=== PATIENT | male | born 1940 | race Caucasian/White ===

== ENCOUNTER 2023-03-15 05:32 | Inpatient (IN) | payer MEDICARE ==
[2023-03-15 06:11] LABS: Basophils % (A) 0 %; Eosinophils % (A) 0 %; HCT 45.4 % (39.0-53.0); HGB 14.6 gm/dL (13.0-17.5); Hypochromasia Slight; Lymphocytes # (A) 0.2 k/uL (1.0-4.8); Lymphocytes % (A) 2 %; MCH 31.4 pg (25.0-35.0); MCHC 32.2 g/dL (31.0-37.0); MCV 97.6 fL (80.0-100.0); Mean Platelet Volume 8.6; Monocytes # (A) 0.2 k/uL (0-1.0); Monocytes % (A) 2 %; Neutrophils # (A) 10.6 k/uL (1.3-7.7); Neutrophils % (A) 96 %; Platelet Count 153 k/uL (150-450); RBC 4.65 m/uL (4.30-5.90); RDW 13.8 % (11.5-15.5); WBC 11.1 k/uL (3.8-10.6)
--- NOTE | 2023-03-15 06:17 | ED ---
Pediatric SOB HPI - General Chief Complaint: Shortness of Breath Stated Complaint: SOB Time Seen by Provider: 03/15/23 05:45 Source: patient, EMS Mode of arrival: EMS Limitations: no limitations - History of Present Illness Initial Comments: This patient is an 82-year-old man transferred here from [facility] for suspected pneumonia and COPD exacerbation. Patient reportedly has history of COPD and uses home oxygen. He states that his typical setting is 8 L and he has been turning up over the past few days to 11 L. Patient states that he's had progressive shortness of breath going back to November. The patient sees outsole paraffiner, Dr. Phani gomez, but has not seen him in over 3 months now. He has had some yellow to green sputum associated with cough. He has not noted fever or chills. Patient has had some intermittent chest pain over the past few weeks associated with shortness of breath. He is not having chest pain now. He has not noted change in bowel movements. Currently denies leg swelling. He again was diagnosed with pneumonia and COPD exacerbation. The patient was given Solu- Medrol and Xopenex 1 hour treatment. The patient received cefepime 1 g and Levaquin 750 mg, as well as saline 500 mL bolus. The patient was then transferred here. Patient states that since receiving the medications his cough has become productive of more whitish sputum. Labs from the other facility include CBC with white blood cell count 10.16, hemoglobin 15, platelets 194. The chemistries remarkable for BUN 24, creatinine 1.83, glucose 271. Lactic acid 8.6, d-dimer 1.6, BNP 15,146. MD Complaint: cough, difficulty breathing Onset/Timin -: days(s) Fever: No Consistency: intermittent Provoking Factors: none known Associated Symptoms: cough - Related Data Home Medications Medication Instructions Recorded Confirmed Clobetasol Propionate/Emoll 1 applic TOPICAL 03/15/23 [Clobetasol Emulsion 0.05% Foam] FLUoxetine HCL [PROzac] 20 mg PO DAILY 03/15/23 03/15/23 Famotidine [Pepcid] 20 mg PO DAILY 03/15/23 03/15/23 Ipratropium-Albuterol Nebulize 3 ml INHALATION RT-TID 03/15/23 03/15/23 [Duoneb 0.5 mg-3 mg/3 ml Soln] Montelukast [Singulair] 10 mg PO HS 03/15/23 03/15/23 Omeprazole [PriLOSEC] 20 mg PO DAILY 03/15/23 03/15/23 diphenhydrAMINE [Benadryl] 25 mg PO BID PRN 03/15/23 03/15/23 guaiFENesin-Coden 100-10MG/5ML 10 ml PO Q6H PRN 03/15/23 03/15/23 [Robitussin AC] Previous Rx's Medication Instructions Recorded Apixaban [Eliquis] 5 mg PO BID 30 Days #60 tab 03/18/23 Diltiazem Oral [Cardizem*] 30 mg PO QID 30 Days #120 tab 03/18/23 Furosemide [Lasix] 40 mg PO BID@0900,1600 30 Days #60 03/18/23 tab predniSONE [Deltasone] 40 mg PO DAILY 5 Days #5 tab 03/18/23 Allergies Allergy/AdvReac Type Severity Reaction Status Date / Time No Known Allergies Allergy Verified 03/15/23 07:15 Review of Systems ROS Statement: Those systems with pertinent positive or pertinent negative responses have been documented in the HPI. ROS Other: All systems not noted in ROS Statement are negative. Constitutional: Denies: fever, chills, weakness Respiratory: Reports: cough, dyspnea. Denies: hemoptysis Cardiovascular: Reports: chest pain, orthopnea. Denies: palpitations, edema, syncope Gastrointestinal: Denies: abdominal pain, vomiting, diarrhea, constipation Genitourinary: Denies: dysuria, frequency Musculoskeletal: Denies: back pain Skin: Denies: rash Neurological: Denies: headache, weakness Past Medical History Past Medical History: COPD, Hyperlipidemia Additional Past Medical History / Comment(s): Pulmonary fibrosis, hiatal hernia, chewing tobacco use History of Any Multi-Drug Resistant Organisms: None Reported Additional Past Surgical History / Comment(s): Amputation R hand, hernia repair, TURP, retinal detachment Past Psychological History: Anxiety, Depression Smoking Status: Former smoker Past Alcohol Use History: None Reported Past Drug Use History: None Reported General Exam Limitations: no limitations General appearance: alert, anxious, in distress Head exam: Present: atraumatic, normocephalic Eye exam: Present: normal appearance. Absent: scleral icterus, conjunctival injection Respiratory exam: Present: respiratory distress, rales, accessory muscle use. Absent: wheezes, rhonchi, stridor Cardiovascular Exam: Present: regular rate, normal rhythm, gallop GI/Abdominal exam: Present: soft. Absent: distended, tenderness, guarding, rebound, rigid, mass Extremities exam: Present: normal inspection, normal capillary refill. Absent: pedal edema, calf tenderness Back exam: Present: normal inspection. Absent: CVA tenderness (R), CVA tenderness (L) Neurological exam: Present: alert Skin exam: Present: warm, dry, intact, normal color. Absent: rash Course Vital Signs 03/15/23 03/15/23 03/15/23 05:35 05:50 06:05 Temperature 97.8 F Pulse Rate 80 99 Respiratory 27 H 26 H Rate Blood Pressure 142/85 142/85 O2 Sat by Pulse 98 96 Oximetry Fraction of 50 Inspired Oxygen (FIO2) 03/15/23 03/15/23 03/15/23 06:06 06:10 06:30 Temperature Pulse Rate 104 H 85 Respiratory 30 H 42 H Rate Blood Pressure 118/74 118/74 O2 Sat by Pulse 93 L 93 L Oximetry Fraction of 50 Inspired Oxygen (FIO2) 03/15/23 03/15/23 03/15/23 06:42 07:00 07:20 Temperature Pulse Rate 96 88 Respiratory 30 H 35 H Rate Blood Pressure 118/74 120/74 O2 Sat by Pulse 95 96 Oximetry Fraction of Inspired Oxygen (FIO2) 03/15/23 03/15/23 03/15/23 07:30 08:00 08:29 Temperature Pulse Rate 79 79 Respiratory 13 42 H Rate Blood Pressure 120/74 120/74 O2 Sat by Pulse 94 L 95 Oximetry Fraction of 50 Inspired Oxygen (FIO2) 03/15/23 03/15/23 08:37 11:49 Temperature Pulse Rate 98 Respiratory 34 H Rate Blood Pressure 134/82 O2 Sat by Pulse 96 96 Oximetry Fraction of Inspired Oxygen (FIO2) Medical Decision Making - Medical Decision Making The patient had chest x-ray which I interpret to show evidence of congestive heart failure and underlying interstitial lung disease versus patchy infiltrates. Patient is an 82-year-old man transferred here from outside hospital to have further evaluation and treatment for severe dyspnea. The patient there was suspected of pneumonia, however arrival here patient appears more likely to have multifactorial dyspnea due to underlying lung disease and some associated congestive heart failure. The patient will be admitted with consultations to pulmonology, cardiology. Clinically patient has improved somewhat with BiPAP and nitroglycerin IV drip. Was pt. sent in by a medical professional or institution ([facility] Harris, KENNEL WORKER, urgent care, hospital, or residential...) When possible be specific @ -[The patient is transferred here from outside hospital Did you speak to anyone other than the patient for history (EMS, parent, family, police, friend...)? What history was obtained from this source @ -[Patient's family does give some history Did you review nursing and triage notes (agree or disagree)? Why? @ -[I reviewed and agree with nursing and triage notes] Were old charts reviewed (outside hosp., previous admission, EMS record, old EKG, old radiological studies, urgent care reports/EKG's, residential records)? Report findings @ -[Transfer records were reviewed] Differential Diagnosis (chest pain, altered mental status, abdominal pain women, abdominal pain men, vaginal bleeding, weakness, fever, dyspnea, syncope, hea dache, dizziness, GI bleed, back pain, seizure, CVA, palpatations, mental health, musculoskeletal)? @ -[Differential Dyspnea: Coronary syndrome, arrhythmia, tamponade, asthma, COPD, pulmonary embolism, pneumonia, pneumothorax, pulmonary effusion, anaphylaxis, diabetic ketoacidosis, flailed chest, pulmonary contusion, diaphragmatic rupture, anemia, neuromuscular, this is not meant to be an all-inclusive list. EKG interpreted by me (3pts min.). @ -[I interpreted As above] X-rays interpreted by me (1pt min.). @ -[I interpreted as above CT interpreted by me (1pt min.). @ -[None done] U/S interpreted by me (1pt. min.). @ -[None done] What testing was considered but not performed or refused? (CT, X-rays, U/S, labs)? Why? @ -[None] What meds were considered but not given or refused? Why? @ -[None] Did you discuss the management of the patient with other professionals (professionals i.e. ALEJANDRINA Harris, KENNEL WORKER, lab, RT, psych nurse, social work faculty member, doughnut machine operator, teacher, safety security officer, caser up)? Give summary @ -[Case is discussed with admitting physician and with data storage specialist and treatment recommendations incorporated Was smoking cessation discussed for >3mins.? @ -[No] Was critical care preformed (if so, how long)? @ -[Yes, 45 minutes Were there social determinants of health that impacted care today? How? (Homelessness, low income, unemployed, alcoholism, drug addiction, transportation, low edu. Level, literacy, decrease access to med. care, senior care, rehab)? @ -[No] Was there de-escalation of care discussed even if they declined (Discuss DNR or withdrawal of care, Hospice)? DNR status @ -[I did discuss CODE STATUS and treatment options as part of the admission process What co-morbidities impacted this encounter? (DM, HTN, Smoking, COPD, CAD, Cancer, CVA, ARF, Chemo, Hep., AIDS, mental health diagnosis, sleep apnea, morbid obesity)? @ -[Chronic lung disease, hypertension Was patient admitted / discharged? Hospital course, mention meds given and route, prescriptions, significant lab abnormalities, going to OR and other pertinent info. @ -[Admitted, as above Undiagnosed new problem with uncertain prognosis? @ -[No] Drug Therapy requiring intensive monitoring for toxicity (Heparin, Nitro, Insulin, Cardizem)? @ -[No] Were any procedures done? @ -[No] Diagnosis/symptom? @ -[Dyspnea, multifactorial Chronic lung disease Impending respiratory failure Exacerbation of congestive heart failure Possible pneumonia Lactic acidosis Acute, or Chronic, or Acute on Chronic? @ -[Acute on chronic Uncomplicated (without systemic symptoms) or Complicated (systemic symptoms)? @ -[Complicated Side effects of treatment? @ -[No] Exacerbation, Progression, or Severe Exacerbation? @ -[No] Poses a threat to life or bodily function? How? (Chest pain, [place], [place], pneumonia, PE, COPD, DKA, ARF, appy, cholecystitis, CVA, Diverticulitis, Homicidal, Suicidal, threat to staff... and all critical care pts) @ -[Yes there is high risk of respiratory failure and - Lab Data Result diagrams: 03/18/23 04:13 03/18/23 04:13 Lab Results 03/15/23 03/15/23 03/15/23 Range/Units 05:47 05:57 05:57 WBC 11.1 H (3.8-10.6) k/uL RBC 4.65 (4.30-5.90) m/uL Hgb 14.6 (13.0-17.5) gm/dL Hct 45.4 (39.0-53.0) % MCV 97.6 (80.0-100.0) fL MCH 31.4 (25.0-35.0) pg MCHC 32.2 (31.0-37.0) g/dL RDW 13.8 (11.5-15.5) % Plt Count 153 (150-450) k/uL MPV 8.6 Neutrophils % 96 % Lymphocytes % 2 % Monocytes % 2 % Eosinophils % 0 % Basophils % 0 % Neutrophils # 10.6 H (1.3-7.7) k/uL Lymphocytes # 0.2 L (1.0-4.8) k/uL Monocytes # 0.2 (0-1.0) k/uL Eosinophils # 0.0 (0-0.7) k/uL Basophils # 0.0 (0-0.2) k/uL Hypochromasia Slight PT 11.5 (10.0-12.5) sec INR 1.1 (<1.2) APTT 23.8 (22.0-30.0) sec Sodium (137-145) mmol/L Potassium (3.5-5.1) mmol/L Chloride (98-107) mmol/L Carbon Dioxide (22-30) mmol/L Anion Gap mmol/L BUN (9-20) mg/dL Creatinine (0.66-1.25) mg/dL Est GFR (CKD-EPI)AfAm (>60 ml/min/1.73 sqM) Est GFR (CKD-EPI)NonAf (>60 ml/min/1.73 sqM) Glucose (74-99) mg/dL Lactic Ac Sepsis Rflx Plasma Lactic Acid Jaydon (0.7-2.0) mmol/L Calcium (8.4-10.2) mg/dL Total Bilirubin (0.2-1.3) mg/dL AST (17-59) U/L ALT (4-49) U/L Alkaline Phosphatase (38-126) U/L Troponin I 0.213 H* (0.000-0.034) ng/mL NT-Pro-B Natriuret Pep pg/mL Total Protein (6.3-8.2) g/dL Albumin (3.5-5.0) g/dL 03/15/23 03/15/23 03/15/23 Range/Units 05:57 05:57 06:49 WBC (3.8-10.6) k/uL RBC (4.30-5.90) m/uL Hgb (13.0-17.5) gm/dL Hct (39.0-53.0) % MCV (80.0-100.0) fL MCH (25.0-35.0) pg MCHC (31.0-37.0) g/dL RDW (11.5-15.5) % Plt Count (150-450) k/uL MPV Neutrophils % % Lymphocytes % % Monocytes % % Eosinophils % % Basophils % % Neutrophils # (1.3-7.7) k/uL Lymphocytes # (1.0-4.8) k/uL Monocytes # (0-1.0) k/uL Eosinophils # (0-0.7) k/uL Basophils # (0-0.2) k/uL Hypochromasia PT (10.0-12.5) sec INR (<1.2) APTT (22.0-30.0) sec Sodium 140 (137-145) mmol/L Potassium 4.4 (3.5-5.1) mmol/L Chloride 111 H (98-107) mmol/L Carbon Dioxide 18 L (22-30) mmol/L Anion Gap 11 mmol/L BUN 23 H (9-20) mg/dL Creatinine 1.13 (0.66-1.25) mg/dL Est GFR (CKD-EPI)AfAm 70 (>60 ml/min/1.73 sqM) Est GFR (CKD-EPI)NonAf 61 (>60 ml/min/1.73 sqM) Glucose 149 H (74-99) mg/dL Lactic Ac Sepsis Rflx Y Plasma Lactic Acid Jaydon 4.3 H* (0.7-2.0) mmol/L Calcium 8.3 L (8.4-10.2) mg/dL Total Bilirubin 0.6 (0.2-1.3) mg/dL AST 39 (17-59) U/L ALT 26 (4-49) U/L Alkaline Phosphatase 90 (38-126) U/L Troponin I (0.000-0.034) ng/mL NT-Pro-B Natriuret Pep 95783 pg/mL Total Protein 6.4 (6.3-8.2) g/dL Albumin 3.4 L (3.5-5.0) g/dL - EKG Data -: EKG Interpreted by Il EKG shows normal: sinus rhythm, axis (Normal), intervals (CA interval 2:30 milliseconds, prolonged consistent with first-degree AV block. QRS duration 123 ms, prolonged consistent with right bundle branch block. QTC 416 ms, normal.), QRS complexes (There is probable old inferior infarct, based on Q waves.), ST-T waves (Lateral ischemia.) Rate: normal (Rate 97 bpm) Interpretation: LV[facility] Disposition Clinical Impression: CHF (congestive heart failure), Lactic acidosis, Chronic interstitial lung di sease Disposition: ADMITTED IP TO THIS HOSP Condition: Serious Is patient prescribed a controlled substance at d/c from ED?: No
[2023-03-15 06:19] LABS: INR 1.1 (<1.2); Partial Thromboplastin Time 23.8 sec (22.0-30.0); Prothrombin Time 11.5 sec (10.0-12.5)
[2023-03-15 06:30] LABS: ALT 26 U/L (4-49); AST 39 U/L (17-59); African American GFR (CKD) 70 (>60 ml/min/1.73 sqM); Albumin 3.4 g/dL (3.5-5.0); Alkaline Phosphatase 90 U/L (38-126); Anion Gap 11 mmol/L; Blood Urea Nitrogen 23 mg/dL (9-20); Calcium 8.3 mg/dL (8.4-10.2); Carbon Dioxide 18 mmol/L (22-30); Chloride 111 mmol/L (98-107); Glucose 149 mg/dL (74-99); Non-African American GFR(CKD) 61 (>60 ml/min/1.73 sqM); Potassium 4.4 mmol/L (3.5-5.1); Sodium 140 mmol/L (137-145); Total Bilirubin 0.6 mg/dL (0.2-1.3); Total Protein 6.4 g/dL (6.3-8.2)
[2023-03-15 06:39] LABS: NT-Pro-B-Type Natriuretic Pept 14300 pg/mL
[2023-03-15] MEDS ORDERED: FUROSEMIDE 10 MG/ML 4 ML VIAL IV SCH (07:45)
--- NOTE | 2023-03-15 07:47 | XR ---
EXAMINATION TYPE: XR chest 1V portable DATE OF EXAM: 03/15/2023 6:11 AM CLINICAL INDICATION:Male, 82 years old with history of dyspnea; [facility] COMPARISON: None TECHNIQUE: XR chest 1V portable Frontal view of the chest. FINDINGS: Lungs/Pleura: There is no evidence of pleural effusion, focal consolidation, or pneumothorax. Pulmonary vascularity: Pulmonary vascular congestion. Heart/mediastinum: Cardiomediastinal silhouette is enlarged and stable. Musculoskeletal: No acute osseous pathology. Other findings: None Lines/Tubes: IMPRESSION: 1. Cardiomegaly and with multifocal airspace opacities. Correlate with BNP for congestive heart fail ure. 2. Multifocal pneumonia or excluded.
[2023-03-15] MEDS: SODIUM CHLORIDE 0.9% 1,000 ML IV SCH (08:00)
[2023-03-15] MEDS ORDERED: ENOXAPARIN 40 MG/0.4 ML SYRINGE SQ SCH (09:00)
[2023-03-15] MEDS ORDERED: ONDANSETRON 4 MG/2 ML VIAL IVP PRN (09:21)
[2023-03-15] MEDS ORDERED: NALOXONE 0.4 MG/ML 1 ML VIAL IV PRN (09:21)
[2023-03-15] MEDS ORDERED: MORPHINE SULFATE 2 MG/ML SYRINGE IV PRN (09:21)
[2023-03-15] MEDS ORDERED: HEPARIN SODIUM 1,000 UN/ML (10ML VL) IV ONE (09:23)
[2023-03-15] MEDS ORDERED: AZITHROMYCIN 500 MG in SODIUM CHLORIDE 0.9% 250 ML IVPB STA (09:27)
[2023-03-15] MEDS ORDERED: PNEUMONIA PROTOCOL UTILIZED 1 EACH MISC PO PRN (09:27)
[2023-03-15] MEDS ORDERED: ACETAMINOPHEN IV (For NPO) 1,000 MG in EMPTY BAG 1 BAG IVPB PRN (09:31)
[2023-03-15] MEDS ORDERED: guaiFENesin-Coden 100-10MG/5ML 10 ML CUP PO PRN (09:31)
[2023-03-15] MEDS ORDERED: methylPREDNISolone SOD SUCCI 40 MG/ML 1 ML VIAL IV SCH (09:45)
--- NOTE | 2023-03-15 10:09 | P.CNPUL ---
History of Present Illness Consult date: 03/15/23 Reason for consult: dyspnea History of present illness: 82-year-old male patient presenting with shortness of breath. I'm seeing the patient in the emergency department and the patient is currently on a BiPAP at a pressure of 10 over 5 cm of water with FiO2 of 50%. The patient was transferred to us from [facility]. He is known to have obstructive sleep apnea, pulmonary fibrosis, hyperlipidemia, hiatal hernia, history of depression, colonic diverticulosis. The patient was seen by Dr. Tracy regarding his pulmonary fibrosis. He is also in the process of switching from Dr. Tracy to Dr. Pacheco. He was getting progressively more hypoxic. He was asked to increase oxygen flow up to 8 L/m nasal cannula which uses on outpatient basis. He has a concentrator at home. He lives in [facility]. He [facility]. Subsequently, he got transferred to us with worsening shortness of breath and currently is on a BiPAP with extreme labored breathing to the point where the patient using accessory muscles of breathing and he is unable to complete full sentences. His generating tidal volumes above 1000. His current respiratory rate is around 38 with a minute ventilation of 46 L/m. Based on the history, he has no chest pain. A productive cough and he was also having some chills on outpatient basis. Chest x-ray was cardiomegaly and multifocal infiltrates and the chronicity of the pulmonary infiltrates are noted known. The echoes 11, he was 14.6 and a platelet count is at 153. Normal coagulation profile. ProBNP level is 14,300, sodium is at 140, BUN is at 23 with a creatinine of 1.1 and a potassium level is at 4.4. Serum bicarb is at 18. The viral profile was negative. His is the power of corporate attorney. The patient states that he is a DNR/DNI CODE STATUS. Review of Systems Constitutional: Reports daytime sleepiness, Reports fatigue, Reports poor appetite, Reports weight gain Eyes: denies as per HPI, denies blurred vision, denies bulging eye, denies decreased vision, denies diplopia, denies discharge, denies dry eye, denies irritation, denies itching, denies pain, denies photophobia, denies loss of peripheral vision, denies loss of vision, denies tunnel vision/blind spots Ears, nose, mouth and throat: Reports as per HPI Breasts: absent: as per HPI, gynecomastia Cardiovascular: Reports decreased exercise tolerance, Reports dyspnea on exertion, Reports rapid heart beat, Reports shortness of breath Respiratory: Reports dyspnea, Reports home oxygen Gastrointestinal: Reports as per HPI Genitourinary: Reports as per HPI Musculoskeletal: Reports as per HPI Musculoskeletal: absent: ankle pain, ankle stiffness, ankle swelling, as per HPI, elbow pain, elbow stiffness, elbow swelling, foot pain, foot stiffness, foot swelling, hand pain, hand stiffness, hand swelling, hip pain, hip stiffness, hip swelling, knee pain, knee stiffness, knee swelling, shoulder pain, shoulder stiffness, shoulder swelling, wrist pain, wrist stiffness, wrist swelling Integumentary: Reports as per HPI Neurological: Reports as per HPI Psychiatric: Reports as per HPI Endocrine: Reports as per HPI, Reports fatigue Hematologic/Lymphatic: Reports as per HPI Allergic/Immunologic: Reports as per HPI Past Medical History Past Medical History: COPD, Hyperlipidemia Additional Past Medical History / Comment(s): Pulmonary fibrosis, hiatal hernia, chewing tobacco use, hyperlipidemia, obesity, depression, hiatal hernia, umbilical hernia, previous history of diverticulosis and rectal bleeding, chronic hypoxic respiratory failure History of Any Multi-Drug Resistant Organisms: None Reported Additional Past Surgical History / Comment(s): Amputation R hand, hernia repair, TURP, retinal detachment Past Psychological History: Anxiety, Depression Smoking Status: Former smoker Past Alcohol Use History: None Reported Past Drug Use History: None Reported Medications and Allergies Home Medications Medication Instructions Recorded Confirmed Type FLUoxetine HCL [PROzac] 20 mg PO DAILY 03/15/23 03/15/23 History Famotidine [Pepcid] 20 mg PO DAILY 03/15/23 03/15/23 History Ipratropium-Albuterol Nebulize 3 ml INHALATION RT-TID 03/15/23 03/15/23 History [Duoneb 0.5 mg-3 mg/3 ml Soln] Irbesartan [Avapro] 150 mg PO DAILY 03/15/23 03/15/23 History Montelukast [Singulair] 10 mg PO HS 03/15/23 03/15/23 History Omeprazole [PriLOSEC] 20 mg PO DAILY 03/15/23 03/15/23 History Simvastatin [Zocor] 40 mg PO HS 03/15/23 03/15/23 History Allergies Allergy/AdvReac Type Severity Reaction Status Date / Time No Known Allergies Allergy Verified 03/15/23 07:15 Physical Exam Vitals: Vital Signs Temp Pulse Resp BP Pulse Ox FiO2 03/15/23 08:37 96 03/15/23 08:29 50 03/15/23 07:20 88 35 H 120/74 96 03/15/23 06:42 30 H 03/15/23 06:10 104 H 30 H 118/74 93 L 03/15/23 06:06 50 03/15/23 06:05 50 03/15/23 05:50 99 26 H 142/85 96 03/15/23 05:35 97.8 F 80 27 H 142/85 98 Intake and Output 03/14/23 03/15/23 03/15/23 22:59 06:59 14:59 Other: Weight 92.85 kg Extremely labored breathing and the patient is using the muscles of breathing and the patient is currently on a BiPAP at a pressure of 10/5 were notified to 50%. Unable to complete full sentences. Looks apprehensive and anxious. Head exam was generally normal. There was no scleral icterus or corneal arcus. Mucous membranes were moist. Neck was supple and without jugular venous distension, thyromegaly, or carotid bruits. Carotids were easily palpable bilaterally. There was no adenopathy. Lungs sounds are diminished bilaterally and the patient has crackles in the mid and lower lung [place] Heart sounds are tachycardic, possible salicylate overall heart sounds are distant. Abdominal exam revealed normal bowel sounds. The abdomen was soft, non-tender, and without masses, organomegaly, or appreciable enlargement of the abdominal aorta. The patient is umbilical hernia which is easily reducible Examination of the extremities revealed easily palpable radial, femoral and pedal pulses. There was no cyanosis, clubbing or edema. Examination of the skin revealed no evidence of significant rashes, suspicious appearing nevi or other concerning lesions. Neurologically the patient is awake and alert and following commands and answering questions appropriately. Results - Laboratory Findings CBC and BMP: 03/15/23 05:57 03/15/23 05:57 PT/INR, D-dimer PT 11.5 sec (10.0-12.5) 03/15/23 05:57 INR 1.1 (<1.2) 03/15/23 05:57 Abnormal lab findings: Abnormal Labs 03/15/23 03/15/23 03/15/23 05:47 05:57 05:57 WBC 11.1 H Neutrophils # 10.6 H Lymphocytes # 0.2 L Chloride 111 H Carbon Dioxide 18 L BUN 23 H Glucose 149 H Plasma Lactic Acid Jaydon Calcium 8.3 L Troponin I 0.213 H* Albumin 3.4 L 03/15/23 05:57 WBC Neutrophils # Lymphocytes # Chloride Carbon Dioxide BUN Glucose Plasma Lactic Acid Jaydon 4.3 H* Calcium Troponin I Albumin - Diagnostic Findings Chest x-ray: image reviewed Assessment and Plan Plan: Acute on chronic hypoxic respiratory failure. The patient has chronic pulmonary fibrosis and has chronic oxygen dependence at 8 L/m nasal cannula. The patient presented to the hospital because of an acute on top of chronic shortness of br eath and hypoxic respiratory failure and the patient is currently on BiPAP at a pressure of 10/5 with an FiO2 of 50%. The cause for this acute decompensation is not clear. Consider underlying CHF as the patient diffuse but the pulmonary infiltrates. Multifocal pneumonia cannot be completely ruled out. Pulmonary embolism is felt to be less likely. The patient is currently in the emergency department. 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 Tracy on outpatient basis Chronic hypoxic respiratory failure maintained on oxygen at 8 L/m nasal cannula Chronic dyspnea secondary to above Elevated proBNP level, consider underlying CHF Obesity Hyperlipidemia History of depression Obstructive sleep apnea Umbilical hernia History of diverticulosis and previous history of rectal bleed Chronic anxiety Plan Condition is quite critical at this point in time. The patient is an acute on top of chronic hypoxic respiratory failure the patient is currently on a BiPAP. Breathing is still labored despite being on a BiPAP. We'll start the patient on Lasix 40 mg IV every 8 hours We'll obtain a cardiology evaluate LV function, proBNP is elevated and the patient could've underlying CHF Over the patient with broad-spectrum antibiotics and put the patient on a combination of Rocephin and Zithromax Check pro calcitonin level The viral screen is been negative IV Solu-Medrol 60 mg every 6 hours William scott 4 times a day We are going to contact the was power of corporate attorney. He states it is a DNR/DNI CODE STATUS and the studies to be further confirmed IV fluids to KVO Condition is critical, possible ICU care specially if unable to confirm the CODE STATUS. Time with Patient: Greater than 30
[2023-03-15 10:16] LABS: INR 1.1 (<1.2); Partial Thromboplastin Time 24.9 sec (22.0-30.0); Prothrombin Time 11.9 sec (10.0-12.5)
[2023-03-15] MEDS: HEPARIN SOD,PORK IN 0.45% NACL 25,000 UNIT in 0.45% NACL 1 250ML.BAG IV SCH (10:26)
[2023-03-15] MEDS: PANTOPRAZOLE 40 MG/10 ML VIAL IV SCH (10:33)
[2023-03-15 11:41] LABS: C Reactive Protein 2.6 mg/dL (<1.0)
[2023-03-15 11:45] LABS: Glucose,Whole Blood 246 mg/dL (70-110)
[2023-03-15] MEDS ORDERED: NITROGLYCERIN OINT 1 INCH/GM PACKET TOPICAL SCH (12:00)
[2023-03-15] MEDS: guaiFENesin 600 MG TABLET.ER PO SCH ×2 (12:52→20:26)
[2023-03-15] MEDS: FLUoxetine HCL 20 MG CAP PO SCH (12:52)
[2023-03-15] MEDS: IPRATROPIUM-ALBUTEROL 3 ML NEB INHALATION SCH ×2 (14:09→20:35)
--- NOTE | 2023-03-15 14:15 | P.HPIM ---
History of Present Illness H&P Date: 03/15/23 Chief Complaint: Shortness of breath * 82-year-old gentleman with past medical history significant for hypertension, dyslipidemia, pulmonary fibrosis, interstitial lung disease, chronic hypoxic respiratory failure on approximately 8 L of oxygen at baseline was sent in from another facility for respiratory failure/pneumonia/COPD exacerbation. Patient has been having productive cough with green-yellow sputum, intermittent chest pain, shortness of breath ongoing for the last few weeks. Prior to transfer to [facility] by mouth: Patient was treated with IV antibiotics including cefepime, Levaquin, IV Solu-Medrol and given Xopenex breathing treatment. At the time of presentation in ED patient was noted to be severely hypoxic and was placed on BiPAP for acute respiratory distress * At the time of presentation in ED patient was noted to be severely hypoxic and was placed on BiPAP for respiratory distress * Workup initiated in ER included a chest x-ray which showed multifocal opacities as well as pulmonary vascular congestion * Serum chemistry obtained in ER included CBC which were WBC of 11.1 hemoglobin 14.6 platelet count of 153 * Sodium of 140 potassium 4.4 chloride 111 carbon dioxide 18 BUNs 20 creatinine 1.13 lactate of 4.3 troponin of 0.213 * N-terminal BNP [id number] * EKG obtained in ER showed sinus tachycardia with nonspecific ST segment changes patient was noted to have elevated troponin and was started on IV heparin drip with consultation from cardiology * Secondary to acute respiratory distress probably medicine was consulted as well * Patient to be admitted to progressive care unit for treatment of ACS, respiratory failure multifocal pneumonia and COPD exacerbation REVIEW OF SYSTEMS: Cough, sputum production, shortness of breath, chest pain CONSTITUTIONAL: No fever, no malaise, no fatigue. HEENT: No recent visual problems or hearing problems. Denied any sore throat. CARDIOVASCULAR: Cough, sputum production, shortness of breath, chest pain PULMONARY: Cough, sputum production, shortness of breath, chest pain GASTROINTESTINAL: No diarrhea, no nausea, no vomiting, no abdominal pain. NEUROLOGICAL: No headaches, no weakness, no numbness. HEMATOLOGICAL: Denies any bleeding or petechiae. GENITOURINARY: Denies any burning micturition, frequency, or urgency. MUSCULOSKELETAL/RHEUMATOLOGICAL: Denies any joint pain, swelling, or any muscle pain. ENDOCRINE: Denies any polyuria or polydipsia. PHYSICAL EXAMINATION: GENERAL: The patient is alert and oriented x3, acute distress, ill appearance, facemask in place HEENT: Pupils are round and equally reacting to light. EOMI Normocephalic, atraumatic. No pharyngeal erythema. No thyromegaly. CARDIOVASCULAR: S1 and S2 present. Tachycardia noted PULMONARY: Decreased breath sounds bilaterally, bilateral crackles ordered, facemask in place ABDOMEN: Soft, nontender, nondistended, normoactive bowel sounds. No palpable organomegaly. MUSCULOSKELETAL: No joint swelling or deformity. EXTREMITIES: No cyanosis, clubbing, or pedal edema. NEUROLOGICAL: Exam limited secondary to acute distress Past Medical History Past Medical History: COPD, Hyperlipidemia Additional Past Medical History / Comment(s): Pulmonary fibrosis, hiatal hernia, chewing tobacco use History of Any Multi-Drug Resistant Organisms: None Reported Additional Past Surgical History / Comment(s): Amputation R hand, hernia repair, TURP, retinal detachment Past Psychological History: Anxiety, Depression Smoking Status: Former smoker Past Alcohol Use History: None Reported Past Drug Use History: None Reported Medications and Allergies Home Medications Medication Instructions Recorded Confirmed Type Aspirin 81 mg PO DAILY 03/15/23 03/15/23 History Clobetasol Propionate/Emoll 1 applic TOPICAL 03/15/23 History [Clobetasol Emulsion 0.05% Foam] FLUoxetine HCL [PROzac] 20 mg PO DAILY 03/15/23 03/15/23 History Famotidine [Pepcid] 20 mg PO DAILY 03/15/23 03/15/23 History Ipratropium-Albuterol Nebulize 3 ml INHALATION RT-TID 03/15/23 03/15/23 History [Duoneb 0.5 mg-3 mg/3 ml Soln] Irbesartan [Avapro] 150 mg PO DAILY 03/15/23 03/15/23 History Montelukast [Singulair] 10 mg PO HS 03/15/23 03/15/23 History Omeprazole [PriLOSEC] 20 mg PO DAILY 03/15/23 03/15/23 History Simvastatin [Zocor] 40 mg PO HS 03/15/23 03/15/23 History diphenhydrAMINE [Benadryl] 25 mg PO BID PRN 03/15/23 03/15/23 History guaiFENesin-Coden 100-10MG/5ML 10 ml PO Q6H PRN 03/15/23 03/15/23 History [Robitussin AC] Allergies Allergy/AdvReac Type Severity Reaction Status Date / Time No Known Allergies Allergy Verified 03/15/23 07:15 Physical Exam Vitals: Vital Signs Temp Pulse Resp BP Pulse Ox FiO2 03/15/23 08:37 96 03/15/23 08:29 50 03/15/23 07:20 88 35 H 120/74 96 03/15/23 06:42 30 H 03/15/23 06:10 104 H 30 H 118/74 93 L 03/15/23 06:06 50 03/15/23 06:05 50 03/15/23 05:50 99 26 H 142/85 96 03/15/23 05:35 97.8 F 80 27 H 142/85 98 Intake and Output 03/14/23 03/15/23 03/15/23 22:59 06:59 14:59 Other: Weight 92.85 kg Results CBC & Chem 7: 03/15/23 05:57 03/15/23 05:57 Labs: Abnormal Lab Results - Last 24 Hours (Table) 03/15/23 03/15/23 03/15/23 Range/Units 05:47 05:57 05:57 WBC 11.1 H (3.8-10.6) k/uL Neutrophils # 10.6 H (1.3-7.7) k/uL Lymphocytes # 0.2 L (1.0-4.8) k/uL Chloride 111 H (98-107) mmol/L Carbon Dioxide 18 L (22-30) mmol/L BUN 23 H (9-20) mg/dL Glucose 149 H (74-99) mg/dL Plasma Lactic Acid Jaydon (0.7-2.0) mmol/L Calcium 8.3 L (8.4-10.2) mg/dL Troponin I 0.213 H* (0.000-0.034) ng/mL Albumin 3.4 L (3.5-5.0) g/dL 03/15/23 Range/Units 05:57 WBC (3.8-10.6) k/uL Neutrophils # (1.3-7.7) k/uL Lymphocytes # (1.0-4.8) k/uL Chloride (98-107) mmol/L Carbon Dioxide (22-30) mmol/L BUN (9-20) mg/dL Glucose (74-99) mg/dL Plasma Lactic Acid Jaydon 4.3 H* (0.7-2.0) mmol/L Calcium (8.4-10.2) mg/dL Troponin I (0.000-0.034) ng/mL Albumin (3.5-5.0) g/dL Assessment and Plan Assessment: Assessment and plan * Acute on chronic hypoxic respiratory failure multifactorial CHF COPD exacerbation * Non-ST elevated IA * History of pulmonary fibrosis with acute exacerbation * Acute exacerbation of congestive heart failure * Multifocal pneumonia * Acute metabolic encephalopathy secondary to hypoxia * Sepsis secondary to multifocal pneumonia * In regards to hypoxic respiratory failure continue patient on noninvasive ventilation, pulmonary medicine consulted continue IV antibiotics, IV steroids, breathing treatments as needed * In regards to CHF exacerbation, echocardiogram ordered, IV Lasix started, continue to monitor intake and output cardiology consulted * In regards to multifocal pneumonia continue patient on Rocephin and azithromycin day one, urine Legionella ordered * In regards to metabolic encephalopathy secondary to hypoxia continue with oxygen supplementation continue with frequent orientation * In regards to sepsis secondary to multifocal pneumonia, blood cultures ordered follow up on CRP and pro-calcitonin levels * Patient appears critically ill cardiology, pulmonary medicine consulted * Prognosis and care plan personally discussed with in ICU * CODE STATUS is no code Time with Patient: Greater than 30
--- NOTE | 2023-03-15 14:51 | P.CRDCN ---
History of Present Illness Consult date: 03/15/23 Consult reason: congestive heart failure (poss valvular disease) History of present illness: History of present illness: This is an 82-year-old male with past medical history significant for pulmonary fibrosis, chronic hypoxic respiratory failure on home O2, hypertension, hyperlipidemia, obstructive sleep apnea. We have been asked to evaluate the patient for elevated troponins. Patient initially presented to [facility]. He was having shortness of breath that had been going on for quite some time was on antibiotics with Zithromax and a prednisone taper without improvement and actually reading was continuing to worsen. His pulse ox was 60% on 8 L nasal cannula at home. His increased his oxygen to 11 L is pulse ox went to 95%. EMS brought the patient int [facility]. Viral panel was negative with Covid 19, influenza A, influenza B and RSV. Blood culture was obtained. WBC 10, hemoglobin 15, platelet count 194. Glucose 271. Creatinine 1.83. Sodium 141, potassium 3.9, CO2 20, d-dimer was 1.6. Lactic acid 8.6. Magnesium 2.2. ProBNP 15,146. Chest x-ray revealed enlarged heart, vascular congestion with edema, hypoinflated lungs with mild elevated left hemidiaphragm. No pleural effusion or pneumothorax. Patient is seen today in the emergency center waiting for bed in the ICU. Only medicine is also following. Home cardiac medications: aspirin 81 mg daily, Lasix 20 mg daily, Lopressor 12.5 mg twice daily, Nitrostat as needed Review Of Systems: At the time of my exam: CONSTITUTIONAL: Denies fever or chills. CARDIOVASCULAR: Denies chest pain, + shortness of breath, + orthopnea, PND or palpitations. RESPIRATORY: + cough. GASTROINTESTINAL: Denies abdominal pain, diarrhea, constipation, nausea or vomiting. MUSCULOSKELETAL: Denies myalgias. NEUROLOGIC: Denies numbness, tingling or weakness. ENDOCRINE: Denies fatigue, weight change, polydipsia or polyurina. GENITOURINARY: Denies burning, hematuria or urgency with micturation. HEMATOLOGIC: Denies history of anemia or bleeding. Physical examination: Gen: This is a 82-year-old male resting and appears to be in mild to moderate di stress, currently on Bipap. VS: reviewed HEENT: Head is atraumatic, normocephalic. Pupils equal, round. Sclerae is anicteric. NECK: Supple. No JVD. LUNGS: diminished with crackles. No intercostal retractions. HEART: Regular rate and rhythm. No murmur. ABDOMEN: Soft No tenderness. EXTREMITIES: No pedal edema. No calf tenderness. NEUROLOGICAL: Patient is awake, alert and oriented x3. Assessment: Acute on chronic hypoxic respiratory failure Chronic pulmonary fibrosis Possible pneumonia Acute on chronic heart failure Plan: tinea patient on IV Lasix 40 mg every 12 hours Continue heparin drip Monitor I&O, daily weights and electrolytes and renal function Obtain 2-D echocardiogram and Doppler study to assess cardiac structure and function Further recommendations to follow based upon clinical course Thank you kindly for this consultation. Nurse practitioner note has been reviewed, I agree with documented findings and plan of care. Patient was seen and examined. Past Medical History Past Medical History: COPD, Hyperlipidemia Additional Past Medical History / Comment(s): Pulmonary fibrosis, hiatal hernia, chewing tobacco use History of Any Multi-Drug Resistant Organisms: None Reported Additional Past Surgical History / Comment(s): Amputation R hand, hernia repair, TURP, retinal detachment Past Psychological History: Anxiety, Depression Smoking Status: Former smoker Past Alcohol Use History: None Reported Past Drug Use History: None Reported Medications and Allergies Home Medications Medication Instructions Recorded Confirmed Type Aspirin 81 mg PO DAILY 03/15/23 03/15/23 History Clobetasol Propionate/Emoll 1 applic TOPICAL 03/15/23 History [Clobetasol Emulsion 0.05% Foam] FLUoxetine HCL [PROzac] 20 mg PO DAILY 03/15/23 03/15/23 History Famotidine [Pepcid] 20 mg PO DAILY 03/15/23 03/15/23 History Ipratropium-Albuterol Nebulize 3 ml INHALATION RT-TID 03/15/23 03/15/23 History [Duoneb 0.5 mg-3 mg/3 ml Soln] Irbesartan [Avapro] 150 mg PO DAILY 03/15/23 03/15/23 History Montelukast [Singulair] 10 mg PO HS 03/15/23 03/15/23 History Omeprazole [PriLOSEC] 20 mg PO DAILY 03/15/23 03/15/23 History Simvastatin [Zocor] 40 mg PO HS 03/15/23 03/15/23 History diphenhydrAMINE [Benadryl] 25 mg PO BID PRN 03/15/23 03/15/23 History guaiFENesin-Coden 100-10MG/5ML 10 ml PO Q6H PRN 03/15/23 03/15/23 History [Robitussin AC] Allergies Allergy/AdvReac Type Severity Reaction Status Date / Time No Known Allergies Allergy Verified 03/15/23 07:15 Physical Exam Vitals: Vital Signs Temp Pulse Resp BP Pulse Ox FiO2 03/15/23 08:37 96 03/15/23 08:29 50 03/15/23 07:20 88 35 H 120/74 96 03/15/23 06:42 30 H 03/15/23 06:10 104 H 30 H 118/74 93 L 03/15/23 06:06 50 03/15/23 06:05 50 03/15/23 05:50 99 26 H 142/85 96 03/15/23 05:35 97.8 F 80 27 H 142/85 98 Intake and Output 03/14/23 03/15/23 03/15/23 22:59 06:59 14:59 Other: Weight 92.85 kg Results 03/15/23 05:57 03/15/23 05:57 Cardiac Enzymes 03/15/23 03/15/23 Range/Units 05:47 05:57 AST 39 (17-59) U/L Troponin I 0.213 H* (0.000-0.034) ng/mL Coagulation 03/15/23 Range/Units 05:57 PT 11.5 (10.0-12.5) sec APTT 23.8 (22.0-30.0) sec CBC 03/15/23 Range/Units 05:57 WBC 11.1 H (3.8-10.6) k/uL RBC 4.65 (4.30-5.90) m/uL Hgb 14.6 (13.0-17.5) gm/dL Hct 45.4 (39.0-53.0) % Plt Count 153 (150-450) k/uL Comprehensive Metabolic Panel 03/15/23 Range/Units 05:57 Sodium 140 (137-145) mmol/L Potassium 4.4 (3.5-5.1) mmol/L Chloride 111 H (98-107) mmol/L Carbon Dioxide 18 L (22-30) mmol/L BUN 23 H (9-20) mg/dL Creatinine 1.13 (0.66-1.25) mg/dL Glucose 149 H (74-99) mg/dL Calcium 8.3 L (8.4-10.2) mg/dL AST 39 (17-59) U/L ALT 26 (4-49) U/L Alkaline Phosphatase 90 (38-126) U/L Total Protein 6.4 (6.3-8.2) g/dL Albumin 3.4 L (3.5-5.0) g/dL Current Medications Generic Name Dose Route Start Last Admin Trade Name Freq PRN Reason Stop Dose Admin Albuterol/Ipratropium 3 ml 03/15/23 13:00 Ipratropium-Albuterol 3 Ml Neb INHALATION RT-TID [facility] Aspirin 325 mg 03/16/23 09:00 Aspirin 325 Mg Tab PO DAILY [facility] Atorvastatin Calcium 20 mg 03/15/23 21:00 Atorvastatin 20 Mg Tab PO HS [facility] Azithromycin 500 mg 03/16/23 09:00 Azithromycin 500 Mg Tab PO 03/17/23 09:01 DAILY [facility] Protocol Fluoxetine HCl 20 mg 03/15/23 09:30 Fluoxetine Hcl 20 Mg Cap PO DAILY [facility] Furosemide 40 mg 03/15/23 07:45 03/15/23 08:41 Furosemide 10 Mg/Ml 4 Ml Vial IV 40 mg Q12H [facility] Administration Guaifenesin 600 mg 03/15/23 09:45 Guaifenesin 600 Mg Tablet.Er PO Q12HR [facility] Guaifenesin/Codeine Phosphate 10 ml 03/15/23 09:31 Guaifenesin-Coden 100-10mg/5ml 10 Ml Cup PO Q6HR PRN Cough Heparin Sodium (Porcine) 0 unit 03/15/23 09:23 Heparin Sodium 1,000 Un/Ml (10ml Vl) IV PER PROTOCOL PRN Low PTT Protocol Sodium Chloride 1,000 mls @ 20 mls/hr 03/15/23 07:45 03/15/23 08:00 Saline 0.9% IV Not Given .Q24H [facility] Heparin Sodium/Sodium Chloride 250 mls @ 10 mls/hr 03/15/23 09:30 25,000 unit/ Sodium Chloride IV .Q24H [facility] Protocol 10.77 UNITS/KG/HR Azithromycin 500 mg/ Sodium 250 mls @ 250 mls/hr 03/15/23 09:27 Chloride IVPB 03/15/23 10:26 ONCE STA Protocol Ceftriaxone Sodium 2 gm/ 50 mls @ 100 mls/hr 03/16/23 09:00 Sodium Chloride IVPB 03/19/23 09:29 Q24HR [facility] Protocol Acetaminophen 1,000 mg/ IV 100 mls @ 400 mls/hr 03/15/23 09:31 Solution IVPB 03/16/23 09:32 Q6HR PRN Fever and/ or Pain Methylprednisolone Sodium Succinate 40 mg 03/15/23 09:45 Methylprednisolone Sod Succi 40 Mg/Ml 1 Ml Vial IV Q12HR [facility] Miscellaneous Information 1 each 03/15/23 09:27 Pneumonia Protocol Utilized 1 Each Misc PO ONCE PRN Per Protocol Montelukast Sodium 10 mg 03/15/23 21:00 Montelukast 10 Mg Tab PO HS [facility] Morphine Sulfate 1 mg 03/15/23 09:21 Morphine Sulfate 2 Mg/Ml Syringe IV Q4HR PRN Severe Pain (Scale 7 to 10) Naloxone HCl 0.2 mg 03/15/23 09:21 Naloxone 0.4 Mg/Ml 1 Ml Vial IV Q2M PRN Opioid Reversal Nitroglycerin 0.5 inch 03/15/23 12:00 Nitroglycerin Oint 1 Inch/Gm Packet TOPICAL 03/16/23 12:01 Q6HR [facility] Ondansetron HCl 4 mg 03/15/23 09:21 Ondansetron 4 Mg/2 Ml Vial IVP Q8HR PRN Nausea And Vomiting Pantoprazole Sodium 40 mg 03/15/23 09:30 Pantoprazole 40 Mg/10 Ml Vial IV DAILY [facility] Intake and Output 03/14/23 03/15/23 03/15/23 22:59 06:59 14:59 Other: Weight 92.85 kg 03/15/23 05:57 03/15/23 05:57
[2023-03-15] MEDS: methylPREDNISolone SOD SUCCI 125 MG/2 ML VIAL IV SCH (17:38)
[2023-03-15] MEDS: FUROSEMIDE 10 MG/ML 4 ML VIAL IV SCH (17:39)
[2023-03-15] MEDS: ATORVASTATIN 20 MG TAB PO SCH (20:26)
[2023-03-15] MEDS: MONTELUKAST 10 MG TAB PO SCH (20:26)
[2023-03-16] MEDS: FUROSEMIDE 10 MG/ML 4 ML VIAL IV SCH ×4 (00:16→23:11)
[2023-03-16] MEDS: methylPREDNISolone SOD SUCCI 125 MG/2 ML VIAL IV SCH ×2 (00:16→06:06)
[2023-03-16 07:14] LABS: Basophils % (A) 0 %; Eosinophils % (A) 0 %; HCT 45.3 % (39.0-53.0); HGB 14.7 gm/dL (13.0-17.5); Lymphocytes # (A) 0.3 k/uL (1.0-4.8); Lymphocytes % (A) 3 %; MCH 30.9 pg (25.0-35.0); MCHC 32.3 g/dL (31.0-37.0); MCV 95.6 fL (80.0-100.0); Mean Platelet Volume 8.7; Monocytes # (A) 0.2 k/uL (0-1.0); Monocytes % (A) 3 %; Neutrophils # (A) 8.3 k/uL (1.3-7.7); Neutrophils % (A) 93 %; Platelet Count 173 k/uL (150-450); RBC 4.74 m/uL (4.30-5.90); RDW 13.9 % (11.5-15.5); WBC 8.9 k/uL (3.8-10.6)
[2023-03-16 07:20] LABS: INR 1.1 (<1.2); Partial Thromboplastin Time 34.2 sec (22.0-30.0); Prothrombin Time 11.8 sec (10.0-12.5)
[2023-03-16 07:39] LABS: African American GFR (CKD) 63 (>60 ml/min/1.73 sqM); Anion Gap 9 mmol/L; Blood Urea Nitrogen 30 mg/dL (9-20); Calcium 8.9 mg/dL (8.4-10.2); Carbon Dioxide 26 mmol/L (22-30); Chloride 107 mmol/L (98-107); Glucose 141 mg/dL (74-99); Non-African American GFR(CKD) 55 (>60 ml/min/1.73 sqM); Potassium 4.3 mmol/L (3.5-5.1); Sodium 142 mmol/L (137-145)
[2023-03-16] MEDS: HEPARIN SODIUM 1,000 UN/ML (10ML VL) IV PRN (08:00)
[2023-03-16] MEDS: PANTOPRAZOLE 40 MG/10 ML VIAL IV SCH (08:00)
[2023-03-16] MEDS: HEPARIN SOD,PORK IN 0.45% NACL 25,000 UNIT in 0.45% NACL 1 250ML.BAG IV SCH (08:01)
[2023-03-16] MEDS: AZITHROMYCIN 500 MG TAB PO SCH (08:05)
[2023-03-16] MEDS: FLUoxetine HCL 20 MG CAP PO SCH (08:05)
[2023-03-16] MEDS: guaiFENesin 600 MG TABLET.ER PO SCH ×2 (08:05→20:00)
[2023-03-16] MEDS: ASPIRIN 325 MG TAB PO SCH (08:05)
[2023-03-16] MEDS: SODIUM CHLORIDE 0.9% 1,000 ML IV SCH (08:05)
--- NOTE | 2023-03-16 08:24 | P.PN ---
Subjective Progress Note Date: 03/16/23 82-year-old male patient presenting with shortness of breath. I'm seeing the patient in the emergency department and the patient is currently on a BiPAP at a pressure of 10 over 5 cm of water with FiO2 of 50%. The patient was transferred to us from [facility]. He is known to have obstructive sleep apnea, pulmonary fibrosis, hyperlipidemia, hiatal hernia, history of depression, colonic diverticulosis. The patient was seen by Dr. Tracy regarding his pulmonary fibrosis. He is also in the process of switching from Dr. Tracy to Dr. Pacheco. He was getting progressively more hypoxic. He was asked to increase oxygen flow up to 8 L/m nasal cannula which uses on outpatient basis. He has a concentrator at home. He lives in [facility]. He arrived there to the emergency department on 11 L. Subsequently, he got transferred to us with worsening shortness of breath and currently is on a BiPAP with extreme labored breathing to the point where the patient using accessory muscles of breathing and he is unable to complete full sentences. His generating tidal volumes above 1000. His current respiratory rate is around 38 with a minute ventilation of 46 L/m. Based on the history, he has no chest pain. A productive cough and he was also having some chills on outpatient basis. Chest x-ray was cardiomegaly and multifocal infiltrates and the chronicity of the pulmonary infiltrates are noted known. The echoes 11, he was 14.6 and a platelet count is at 153. Normal coagulation profile. ProBNP level is 14,300, sodium is at 140, BUN is at 23 with a creatinine of 1.1 and a potassium level is at 4.4. Serum bicarb is at 18. The viral profile was negative. His is the power of prosecuting attorney. The patient states that he is a DNR/DNI CODE STATUS. On today's evaluation 03/16/2023, the patient is off the BiPAP. He is currently on oxygen at 10 L I flow. Doing much better, communicating, breathing is obviously less labored compared to yesterday. He was quite short of breath supported by BiPAP throughout the day and ultimately was taken off the BiPAP. He is receiving broad-spectrum antibiotics. He is on steroids and is also on diuretics. The overall fluid balance over the past 24 hours is -3.7 L. Chest x-ray was repeated today and there is obviously some improvement elevation of the lungs bilaterally. The patient does have some background interstitial fibrosis however. No consolidation. No airspace disease. Blood work shows edematous of 8.9, hemoglobin is 14.7 and a platelet count of 173. His lactic acid level dropped down to 2.0. His troponin peaked at 0.397. His pro calcitonin level is at 0.12. Urine is a 30 with a creatinine of 1.2 and a sodium level is at 142. Echocardiogram is still pending. Objective - Vital Signs Vital signs: Vital Signs Temp 97.3 F L 03/16/23 08:00 Pulse 103 H 03/16/23 08:00 Resp 21 03/16/23 08:00 BP 117/78 03/16/23 08:00 Pulse Ox 91 L 03/16/23 08:00 FiO2 50 03/16/23 04:40 Intake & Output 03/15/23 03/16/23 03/16/23 18:59 06:59 18:59 Intake Total 270 215.833 Output Total 1949 2029 40 Balance -1679 -2029 175.833 Weight 92.85 kg 92.3 kg Intake: IV 270 Azithromycin 500 mg In 250 Sodium Chloride 0.9% 250 ml @ 250 mls/hr IVPB ONCE [facility] Rx#:[id number] Sodium Chloride 0.9% 1, 20 000 ml @ 20 mls/hr IV . Q24H [facility], [facility]–1983 Rx#:[id number] Intake, IV Titration 215.833 Amount Heparin Sod,Pork in 0.45% 215.833 NaCl 25,000 unit In 0.45 % NaCl 1 250ml.bag @ 10. 77 UNITS/KG/HR 10 mls/hr IV .Q24H [facility], [facility]1983 Rx#: [id number] Output: Urine 1949 2029 40 Uretheral (Malik) 350 Other: Voiding Method Indwelling Catheter Indwelling Catheter - Exam Extremely labored breathing and the patient is comfortable and currently is on 10 L of oxygen by nasal cannula with a pulse ox of 95%. Head exam was generally normal. There was no scleral icterus or corneal arcus. Mucous membranes were moist. Neck was supple and without jugular venous distension, thyromegaly, or carotid bruits. Carotids were easily palpable bilaterally. There was no adenopathy. Lungs sounds are diminished bilaterally and the patient has crackles in the mid and lower lung villanueva Heart sounds are tachycardic, possible salicylate overall heart sounds are distant. Abdominal exam revealed normal bowel sounds. The abdomen was soft, non-tender, and without masses, organomegaly, or appreciable enlargement of the abdominal aorta. The patient is umbilical hernia which is easily reducible Examination of the extremities revealed easily palpable radial, femoral and pedal pulses. There was no cyanosis, clubbing or edema. Examination of the skin revealed no evidence of significant rashes, suspicious appearing nevi or other concerning lesions. Neurologically the patient is awake and alert and following commands and answe ring questions appropriately. - Labs CBC & Chem 7: 03/16/23 06:55 03/16/23 06:55 Labs: Abnormal Lab Results - Last 24 Hours (Table) 03/15/23 03/15/23 03/15/23 Range/Units 09:34 09:34 09:34 Neutrophils # (1.3-7.7) k/uL Lymphocytes # (1.0-4.8) k/uL APTT (22.0-30.0) sec BUN (9-20) mg/dL Glucose (74-99) mg/dL POC Glucose (mg/dL) (70-110) mg/dL Plasma Lactic Acid Jaydon 4.0 H* (0.7-2.0) mmol/L Troponin I 0.358 H* (0.000-0.034) ng/mL C-Reactive Protein 2.6 H (<1.0) mg/dL Procalcitonin (0.02-0.09) ng/mL 03/15/23 03/15/23 03/15/23 Range/Units 09:34 11:44 12:21 Neutrophils # (1.3-7.7) k/uL Lymphocytes # (1.0-4.8) k/uL APTT (22.0-30.0) sec BUN (9-20) mg/dL Glucose (74-99) mg/dL POC Glucose (mg/dL) 246 H (70-110) mg/dL Plasma Lactic Acid Jaydon (0.7-2.0) mmol/L Troponin I 0.397 H* (0.000-0.034) ng/mL C-Reactive Protein (<1.0) mg/dL Procalcitonin 0.12 H (0.02-0.09) ng/mL 03/15/23 03/15/23 03/15/23 Range/Units 12:59 15:09 16:39 Neutrophils # (1.3-7.7) k/uL Lymphocytes # (1.0-4.8) k/uL APTT 46.3 H (22.0-30.0) sec BUN (9-20) mg/dL Glucose (74-99) mg/dL POC Glucose (mg/dL) (70-110) mg/dL Plasma Lactic Acid Jaydon 5.3 H* 3.0 H* (0.7-2.0) mmol/L Troponin I (0.000-0.034) ng/mL C-Reactive Protein (<1.0) mg/dL Procalcitonin (0.02-0.09) ng/mL 03/15/23 03/16/23 03/16/23 Range/Units 20:06 06:55 06:55 Neutrophils # 8.3 H (1.3-7.7) k/uL Lymphocytes # 0.3 L (1.0-4.8) k/uL APTT (22.0-30.0) sec BUN 30 H (9-20) mg/dL Glucose 141 H (74-99) mg/dL POC Glucose (mg/dL) (70-110) mg/dL Plasma Lactic Acid Jaydon 3.2 H* (0.7-2.0) mmol/L Troponin I (0.000-0.034) ng/mL C-Reactive Protein (<1.0) mg/dL Procalcitonin (0.02-0.09) ng/mL 03/16/23 Range/Units 06:55 Neutrophils # (1.3-7.7) k/uL Lymphocytes # (1.0-4.8) k/uL APTT 34.2 H (22.0-30.0) sec BUN (9-20) mg/dL Glucose (74-99) mg/dL POC Glucose (mg/dL) (70-110) mg/dL Plasma Lactic Acid Jaydon (0.7-2.0) mmol/L Troponin I (0.000-0.034) ng/mL C-Reactive Protein (<1.0) mg/dL Procalcitonin (0.02-0.09) ng/mL Assessment and Plan Plan: Acute on chronic hypoxic respiratory failure. The patient has chronic pulmonary fibrosis and has chronic oxygen dependence at 8 L/m nasal cannula. The patient presented to the hospital because of an acute on top of chronic shortness of breath and hypoxic respiratory failure and the patient is currently on BiPAP at a pressure of 10/5 with an FiO2 of 50%. The cause for this acute decompensation is not clear. Consider underlying CHF as the patient diffuse but the pulmonary infiltrates. Multifocal pneumonia cannot be completely ruled out. Pulmonary embolism is felt to be less likely. The patient is currently in the emergency department. He states that he has a DNR/DNI CODE STATUS. Over the past 12-24 hours, the patient should and demonstrated significant improvement. He has been diuresed with IV Lasix. The chest x-ray shows improvement in the interstitial edema bilaterally and there is some background fibrosis. Oxygenation is also improved. The patient is off the BiPAP and the patient is currently on high flow oxygen and 10 L. He remains on IV Lasix. 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 Tracy on outpatient basis Chronic hypoxic respiratory failure maintained on oxygen at 8 L/m nasal cannula Chronic dyspnea secondary to above Elevated proBNP level, consider underlying CHF Troponin leak, rule out acute non-ST segment elevation myocardial infarction Obesity Hyperlipidemia History of depression Obstructive sleep apnea Umbilical hernia History of diverticulosis and previous history of rectal bleed Chronic anxiety Plan Condition is more stable compared to yesterday May continue utilizing BiPAP on and off during the day Continue IV Lasix for another 24 hours Awaiting the results of the echocardiogram Pro calcitonin level is minimally elevated and the patient is currently on IV antibiotics on an empiric basis The viral screen is been negative Discontinue the IV Solu-Medrol and put the patient on 40 mg of oral prednisone William scott 4 times a day We are going to contact the was power of prosecuting attorney. He states it is a DNR/DNI CODE STATUS and this has been also confirmed with the . IV fluids to KVO Restart Prozac 20 mg, Zocor 40 mg and Avapro 150 mg. Condition is critical, possible ICU care specially if unable to confirm the CODE STATUS. Critical care evaluation that was done, >30 min Time with Patient: Greater than 30
[2023-03-16] MEDS: IPRATROPIUM-ALBUTEROL 3 ML NEB INHALATION SCH ×3 (08:31→20:21)
--- NOTE | 2023-03-16 08:36 | XR ---
EXAMINATION TYPE: XR chest 1V portable DATE OF EXAM: 03/16/2023 Comparison: 03/15/2023 Clinical History: 82-year-old male diffuse bilateral effusions Findings: Heart moderately enlarged. Diffuse interstitial and patchy peripheral opacities persist without signi ficant change. No sizable pleural effusion. Impression: Moderate cardiomegaly and diffuse interstitial opacity persists. Consider CHF. Other etiologies not e xcluded.
[2023-03-16] MEDS: predniSONE 20 MG TAB PO SCH (09:08)
[2023-03-16] MEDS: LOSARTAN 50 MG TAB PO SCH (09:08)
--- NOTE | 2023-03-16 12:13 | P.PN ---
Subjective Progress Note Date: 03/16/23 * 82-year-old gentleman with past medical history significant for hypertension, dyslipidemia, pulmonary fibrosis, interstitial lung disease, chronic hypoxic respiratory failure on approximately 8 L of oxygen at baseline was sent in from another facility for respiratory failure/pneumonia/COPD exacerbation. Patient has been having productive cough with green-yellow sputum, intermittent chest pain, shortness of breath ongoing for the last few weeks. Prior to transfer to [facility] by mouth: Patient was treated with IV antibiotics including cefepime, Levaquin, IV Solu-Medrol and given Xopenex breathing tr eatment. At the time of presentation in ED patient was noted to be severely hypoxic and was placed on BiPAP for acute respiratory distress * At the time of presentation in ED patient was noted to be severely hypoxic and was placed on BiPAP for respiratory distress * Workup initiated in ER included a chest x-ray which showed multifocal opacities as well as pulmonary vascular congestion * Serum chemistry obtained in ER included CBC which were WBC of 11.1 hemoglobin 14.6 platelet count of 153 * Sodium of 140 potassium 4.4 chloride 111 carbon dioxide 18 BUNs 20 creatinine 1.13 lactate of 4.3 troponin of 0.213 * N-terminal BNP 44326 * EKG obtained in ER showed sinus tachycardia with nonspecific ST segment changes patient was noted to have elevated troponin and was started on IV heparin drip with consultation from cardiology * Secondary to acute respiratory distress probably medicine was consulted as well * Patient to be admitted to progressive care unit for treatment of ACS, respiratory failure multifocal pneumonia and COPD exacerbation * 03/16/2023: Patient seen and everted bedside, during my evaluation patient is alert and oriented 4, patient is on high flow oxygen 10 L, at bedside, continue on current medications including IV antibiotic. Follow-up on blood work shows improvement in WBC count, serum chemistry essentially improved, lactate within normal limits REVIEW OF SYSTEMS: Cough, sputum production, shortness of breath, chest pain im proved CONSTITUTIONAL: No fever, no malaise, no fatigue. HEENT: No recent visual problems or hearing problems. Denied any sore throat. CARDIOVASCULAR: Cough, sputum production, shortness of breath, chest pain PULMONARY: Cough, sputum production, shortness of breath, chest pain GASTROINTESTINAL: No diarrhea, no nausea, no vomiting, no abdominal pain. NEUROLOGICAL: No headaches, no weakness, no numbness. HEMATOLOGICAL: Denies any bleeding or petechiae. GENITOURINARY: Denies any burning micturition, frequency, or urgency. MUSCULOSKELETAL/RHEUMATOLOGICAL: Denies any joint pain, swelling, or any muscle pain. ENDOCRINE: Denies any polyuria or polydipsia. PHYSICAL EXAMINATION: GENERAL: The patient is alert and oriented x3, acute distress, ill appearance,nasal canula in place HEENT: Pupils are round and equally reacting to light. EOMI Normocephalic, atraumatic. No pharyngeal erythema. No thyromegaly. CARDIOVASCULAR: S1 and S2 present. Tachycardia noted PULMONARY: Decreased breath sounds bilaterally, bilateral crackles ordered, ABDOMEN: Soft, nontender, nondistended, normoactive bowel sounds. MUSCULOSKELETAL: No joint swelling or deformity. EXTREMITIES: No cyanosis, clubbing, or pedal edema. NEUROLOGICAL: Alert and oriented 3 no focal deficit noted Objective - Vital Signs Vital signs: Vital Signs Temp 97.3 F L 03/16/23 08:00 Pulse 112 H 03/16/23 11:14 Resp 20 03/16/23 10:00 BP 136/78 03/16/23 10:00 Pulse Ox 91 L 03/16/23 10:00 FiO2 50 03/16/23 04:40 Intake & Output 03/15/23 03/16/23 03/16/23 18:59 06:59 18:59 Intake Total 270 215.833 Output Total 1949 2029 740 Balance -1679 -524.167 Weight 92.85 kg 92.3 kg Intake: IV 270 0 Azithromycin 500 mg In 250 Sodium Chloride 0.9% 250 ml @ 250 mls/hr IVPB ONCE [facility] Rx#:[id number] Sodium Chloride 0.9% 1, 20 0 000 ml @ 20 mls/hr IV . Q24H [facility] Rx#:[id number] Intake, IV Titration 215.833 Amount Heparin Sod,Pork in 0.45% 215.833 NaCl 25,000 unit In 0.45 % NaCl 1 250ml.bag @ 10. 77 UNITS/KG/HR 10 mls/hr IV .Q24H [facility] Rx#: [id number] Output: Urine 1949 2029 740 Uretheral (Malik) 350 Other: Voiding Method Indwelling Catheter Indwelling Catheter Indwelling Catheter - Labs CBC & Chem 7: 03/16/23 06:55 03/16/23 06:55 Labs: Abnormal Lab Results - Last 24 Hours (Table) 03/15/23 03/15/23 03/15/23 Range/Units 09:34 12:21 12:59 Neutrophils # (1.3-7.7) k/uL Lymphocytes # (1.0-4.8) k/uL APTT (22.0-30.0) sec BUN (9-20) mg/dL Glucose (74-99) mg/dL Plasma Lactic Acid Jaydon 5.3 H* (0.7-2.0) mmol/L Troponin I 0.397 H* (0.000-0.034) ng/mL Procalcitonin 0.12 H (0.02-0.09) ng/mL 03/15/23 03/15/23 03/15/23 Range/Units 15:09 16:39 20:06 Neutrophils # (1.3-7.7) k/uL Lymphocytes # (1.0-4.8) k/uL APTT 46.3 H (22.0-30.0) sec BUN (9-20) mg/dL Glucose (74-99) mg/dL Plasma Lactic Acid Jaydon 3.0 H* 3.2 H* (0.7-2.0) mmol/L Troponin I (0.000-0.034) ng/mL Procalcitonin (0.02-0.09) ng/mL 03/16/23 03/16/23 03/16/23 Range/Units 06:55 06:55 06:55 Neutrophils # 8.3 H (1.3-7.7) k/uL Lymphocytes # 0.3 L (1.0-4.8) k/uL APTT 34.2 H (22.0-30.0) sec BUN 30 H (9-20) mg/dL Glucose 141 H (74-99) mg/dL Plasma Lactic Acid Jaydon (0.7-2.0) mmol/L Troponin I (0.000-0.034) ng/mL Procalcitonin (0.02-0.09) ng/mL Assessment and Plan Assessment: Assessment and plan * Acute on chronic hypoxic respiratory failure multifactorial CHF COPD exacerbation * Non-ST elevated OK * History of pulmonary fibrosis with acute exacerbation * Acute exacerbation of congestive heart failure * Multifocal pneumonia * Acute metabolic encephalopathy secondary to hypoxia * Sepsis secondary to multifocal pneumonia * In regards to hypoxic respiratory failure continue patient was on noninvasive ventilation, pulmonary medicine consulted >> continue IV antibiotics, IV steroids, breathing treatments as needed, on Rocephin and azithromycin day 2 * In regards to CHF exacerbation, echocardiogram ordered, IV Lasix started, continue to monitor intake and output cardiology consulted * In regards to multifocal pneumonia continue patient on Rocephin and azithromycin day 2 , urine Legionella ordered * In regards to metabolic encephalopathy secondary to hypoxia continue with oxygen supplementation continue with frequent orientation * In regards to sepsis secondary to multifocal pneumonia, blood cultures ordered, CRP and pro-calcitonin minimally elevated * Patient appears critically ill cardiology, pulmonary medicine consulted * Prognosis and care plan personally discussed with in ICU * CODE STATUS is no code
--- NOTE | 2023-03-16 13:13 | CA ---
Transthoracic Echo Report Name: Renny Mcgee Age: 82 Gender: M : 1940 Exam Date: 03/16/2023 09:27 Exam Location: [facility] Ht (in): Wt (lb): Ordering Physician: Nola Franks MD Attending/Referring Phys: Enrollment Management Manager Joe Pleitez RDCS Procedure CPT: Indications: Non-ST elevated ID CHF Cardiac Hx: Technical Quality: Technically difficult study Contrast 1: Definity Total Dose (mL): 2 Contrast 2: Total Dose (mL): MEASUREMENTS (Male / Female) Normal Values 2D ECHO LV Diastolic Diameter PLAX 4.6 cm 4.2 - 5.9 / 3.9 - 5.3 cm LV Systolic Diameter PLAX 3.5 cm IVS Diastolic Thickness 1.4 cm 0.6 - 1.0 / 0.6 - 0.9 cm LVPW Diastolic Thickness 1.3 cm 0.6 - 1.0 / 0.6 - 0.9 cm LV Relative Wall Thickness 0.6 RV Internal Dim ED PLAX 4.9 cm LVOT Diameter 2.2 cm Aortic Root Diameter 3.6 cm LA Systolic Diameter LX 2.3 cm 3.0 - 4.0 / 2.7 - 3.8 cm LV Diastolic Volume MOD 4C 104.7 cm??? LV Systolic Volume MOD 4C 33.3 cm??? LV Ejection Fraction MOD 4C 68.2 % LV Diastolic Length 4C 8.0 cm LV Systolic Length 4C 7.1 cm DOPPLER AV Peak Velocity 160.3 cm/s AV Peak Gradient 10.3 mmHg AV Mean Velocity 106.1 cm/s AV Mean Gradient 5.4 mmHg AV Velocity Time Integral 29.0 cm AI Peak Velocity 470.6 cm/s AI Peak Gradient 88.6 mmHg AI Pressure Half Time 595.0 ms LVOT Peak Velocity 85.8 cm/s LVOT Peak Gradient 2.9 mmHg LVOT Velocity Time Integral 17.9 cm LVOT Stroke Volume 69.2 cm??? AV Area Cont Eq vti 2.4 cm??? AV Area Cont Eq pk 2.1 cm??? MV Peak Velocity 83.7 cm/s MV Peak Gradient 2.8 mmHg MV Mean Velocity 52.1 cm/s MV Mean Gradient 1.3 mmHg MV Velocity Time Integral 22.0 cm MR Peak Velocity 265.6 cm/s MR Peak Gradient 28.2 mmHg Mitral E Point Velocity 61.3 cm/s Mitral A Point Velocity 61.7 cm/s Mitral E to A Ratio 1.0 MV Deceleration Time 207.5 ms MV E' Velocity 6.6 cm/s Mitral E to MV E' Ratio 9.3 TR Peak Velocity 379.3 cm/s TR Peak Gradient 57.5 mmHg Right Ventricular Systolic Press 62.5 mmHg PV Peak Velocity 70.1 cm/s PV Peak Gradient 2.0 mmHg FINDINGS Left Ventricle Normal LV size. Mild concentric LVH. Left ventricular ejection fraction is estimated at 50-55 %. Increased Rt heart pressure causing ventricular septal flattening. Right Ventricle Severe right ventricular dilatation. RVSP= 62 mmHg. TAPSE= 2.2cm Right Atrium Normal right atrial size. Left Atrium Normal left atrial size. Mitral Valve Mitral valve not well visualized. There is at least mild to moderate MV calcification. No mitral stenosis. Mild to moderate MR. Aortic Valve Aortic valve not well visualized. Moderate AV calcification. Moderate AI. No aortic stenosis. Tricuspid Valve Structurally normal tricuspid valve. Moderate TR. Pulmonic Valve Pulmonic valve not well visualized. No pulmonic regurgitation. Pericardium Not well visualized but grossly normal. Aorta Normal size aortic root. CONCLUSIONS Technically difficult. Limited views. Enlarged right ventricle +RVH with hypokinetic metcalf Severe RVSP elevation Septal flattening Previewed by: Dr. Sharif Seals MD (Electronically Signed) Final Date: 16 March 2023 13:12
[2023-03-16 15:25] LABS: Chol/HDL Ratio 3.51 Ratio; VLDL Calculation 13.66 mg/dL (5.00-40.00)
--- NOTE | 2023-03-16 15:45 | P.PN ---
Subjective Progress Note Date: 03/16/23 HPI This is an 82-year-old male with past medical history significant for pulmonary fibrosis, chronic hypoxic respiratory failure on home O2, hypertension, hyperlipidemia, obstructive sleep apnea. We have been asked to evaluate the patient for elevated troponins. Patient initially presented to [facility]. He was having shortness of breath that had been going on for quite some time was on antibiotics with Zithromax and a prednisone taper without improvement and actually reading was continuing to worsen. His pulse ox was 60% on 8 L nasal cannula at home. His increased his oxygen to 11 L is pulse ox went to 95%. EMS brought the patient int [facility]. Viral panel was negative with Covid 19, influenza A, influenza B and RSV. WBC 10, hemoglobin 15, platelet count 194. Glucose 271. Creatinine 1.83. Sodium 141, potassium 3.9, CO2 20, d-dimer was 1.6. Lactic acid 8.6. Magnesium 2.2. ProBNP 15,146. Chest x-ray revealed enlarged heart, vascular congestion with edema, hypoinflated lungs with mild elevated left hemidiaphragm. No pleural effusion or pneumothorax. Home cardiac medications: aspirin 81 mg daily, Lasix 20 mg daily, Lopressor 12.5 mg twice daily, Nitrostat as needed Progress note 03/16/2023 Physical examination: Gen: This is a 82-year-old male resting and appears to be in mild to moderate distress, currently on Bipap. VS: reviewed HEENT: Head is atraumatic, normocephalic. Pupils equal, round. Sclerae is anicteric. NECK: Supple. No JVD. LUNGS: diminished with crackles. No intercostal retractions. HEART: Regular rate and rhythm. No murmur. ABDOMEN: Soft No tenderness. EXTREMITIES: No pedal edema. No calf tenderness. NEUROLOGICAL: Patient is awake, alert and oriented x3. Assessment: Acute on chronic hypoxic respiratory failure due to diastolic congestive heart failure exacerbation Chronic hypoxia due to chronic lung fibrosis, on 9 L oxygen previously Possible pneumonia Elevated troponin, likely type II nstemi in setting of severe hypoxia Echo showed limited views, LVEF estimated to be around 50%, severe RV dilatation with severe pulmonary hypertension, moderate MR Plan: Continue on IV Lasix 40 mg every 12 hours Continue heparin drip for next 24 hr Continue aspirin, atorvastatin. We had a detailed discussion about patient's long-term prognosis. At this time patient and patient's family has decided that they would like to keep him as no code. They do not want any invasive workup like heart catheterization at this time. Continue supportive care Prognosis guarded Objective - Vital Signs Vital signs: Vital Signs Temp 97.3 F L 03/16/23 08:00 Pulse 115 H 03/16/23 14:00 Resp 38 H 03/16/23 14:00 BP 145/112 03/16/23 14:00 Pulse Ox 87 L 03/16/23 14:00 FiO2 50 03/16/23 04:40 Intake & Output 03/15/23 03/16/23 03/16/23 18:59 06:59 18:59 Intake Total 270 215.833 Output Total 1949 2029 940 Balance -1679 -724.167 Weight 92.85 kg 92.3 kg 92.3 kg Intake: IV 270 0 Azithromycin 500 mg In 250 Sodium Chloride 0.9% 250 ml @ 250 mls/hr IVPB ONCE [facility] Rx#:[id number] Sodium Chloride 0.9% 1, 20 0 000 ml @ 20 mls/hr IV . Q24H [facility] Rx#:[id number] Intake, IV Titration 215.833 Amount Heparin Sod,Pork in 0.45% 215.833 NaCl 25,000 unit In 0.45 % NaCl 1 250ml.bag @ 10. 77 UNITS/KG/HR 10 mls/hr IV .Q24H [facility] Rx#: [id number] Output: Urine 19490 Uretheral (Malik) 350 Other: Voiding Method Indwelling Catheter Indwelling Catheter Indwelling Catheter - Labs CBC & Chem 7: 03/16/23 06:55 03/16/23 06:55 Labs: Abnormal Lab Results - Last 24 Hours (Table) 03/15/23 03/15/23 03/15/23 Range/Units 09:34 16:39 20:06 Neutrophils # (1.3-7.7) k/uL Lymphocytes # (1.0-4.8) k/uL APTT (22.0-30.0) sec BUN (9-20) mg/dL Glucose (74-99) mg/dL Plasma Lactic Acid Jaydon 3.0 H* 3.2 H* (0.7-2.0) mmol/L Procalcitonin 0.12 H (0.02-0.09) ng/mL 03/16/23 03/16/23 03/16/23 Range/Units 06:55 06:55 06:55 Neutrophils # 8.3 H (1.3-7.7) k/uL Lymphocytes # 0.3 L (1.0-4.8) k/uL APTT 34.2 H (22.0-30.0) sec BUN 30 H (9-20) mg/dL Glucose 141 H (74-99) mg/dL Plasma Lactic Acid Jaydon (0.7-2.0) mmol/L Procalcitonin (0.02-0.09) ng/mL 03/16/23 Range/Units 14:01 Neutrophils # (1.3-7.7) k/uL Lymphocytes # (1.0-4.8) k/uL APTT 45.8 H (22.0-30.0) sec BUN (9-20) mg/dL Glucose (74-99) mg/dL Plasma Lactic Acid Jaydon (0.7-2.0) mmol/L Procalcitonin (0.02-0.09) ng/mL Microbiology - Last 24 Hours (Table) 03/15/23 05:57 Blood Culture - Preliminary Blood 03/15/23 06:00 Blood Culture - Preliminary Blood
[2023-03-16] MEDS: MONTELUKAST 10 MG TAB PO SCH (20:00)
[2023-03-16] MEDS: ATORVASTATIN 20 MG TAB PO SCH (20:00)
[2023-03-16] MEDS ORDERED: NITROGLYCERIN OINT 1 INCH/GM PACKET TOPICAL STA (23:27)
[2023-03-17] MEDS: HEPARIN SOD,PORK IN 0.45% NACL 25,000 UNIT in 0.45% NACL 1 250ML.BAG IV SCH (02:58)
[2023-03-17 04:10] LABS: HCT 45.1 % (39.0-53.0); HGB 14.9 gm/dL (13.0-17.5); MCH 31.5 pg (25.0-35.0); MCHC 33.1 g/dL (31.0-37.0); MCV 95.2 fL (80.0-100.0); Mean Platelet Volume 8.7; Platelet Count 193 k/uL (150-450); RBC 4.74 m/uL (4.30-5.90); RDW 13.9 % (11.5-15.5)
[2023-03-17] MEDS: HEPARIN SODIUM 1,000 UN/ML (10ML VL) IV PRN (04:56)
[2023-03-17] MEDS: PANTOPRAZOLE 40 MG/10 ML VIAL IV SCH (08:18)
[2023-03-17] MEDS: FUROSEMIDE 10 MG/ML 4 ML VIAL IV SCH ×2 (08:18→20:31)
[2023-03-17] MEDS: predniSONE 20 MG TAB PO SCH (08:19)
[2023-03-17] MEDS: AZITHROMYCIN 500 MG TAB PO SCH (08:19)
[2023-03-17] MEDS: LOSARTAN 50 MG TAB PO SCH (08:19)
[2023-03-17] MEDS: ASPIRIN 325 MG TAB PO SCH (08:19)
[2023-03-17] MEDS: FLUoxetine HCL 20 MG CAP PO SCH (08:19)
[2023-03-17] MEDS: guaiFENesin 600 MG TABLET.ER PO SCH ×2 (08:19→20:28)
[2023-03-17] MEDS ORDERED: AMIODARONE 360 MG in DEXTROSE 5% IN WATER 200 ML IV ONE ×2 (09:04)
[2023-03-17] MEDS ORDERED: DEXTROSE 5% IN WATER 100 ML with AMIODARONE 150 MG IV ONE (09:04)
--- NOTE | 2023-03-17 09:09 | P.PN ---
Subjective Progress Note Date: 03/17/23 82-year-old male patient presenting with shortness of breath. I'm seeing the patient in the emergency department and the patient is currently on a BiPAP at a pressure of 10 over 5 cm of water with FiO2 of 50%. The patient was transferred to us from [facility]. He is known to have obstructive sleep apnea, pulmonary fibrosis, hyperlipidemia, hiatal hernia, history of depression, colonic diverticulosis. The patient was seen by Dr. Tracy regarding his pulmonary fibrosis. He is also in the process of switching from Dr. Tracy to Dr. Pacheco. He was getting progressively more hypoxic. He was asked to increase oxygen flow up to 8 L/m nasal cannula which uses on outpatient basis. He has a concentrator at home. He lives in [facility]. He arrived there to the emergency department on 11 L. Subsequently, he got transferred to us with worsening shortness of breath and currently is on a BiPAP with extreme labored breathing to the point where the patient using accessory muscles of breathing and he is unable to complete full sentences. His generating tidal volumes above 1000. His current respiratory rate is around 38 with a minute ventilation of 46 L/m. Based on the history, he has no chest pain. A productive cough and he was also having some chills on outpatient basis. Chest x-ray was cardiomegaly and multifocal infiltrates and the chronicity of the pulmonary infiltrates are noted known. The echoes 11, he was 14.6 and a platelet count is at 153. Normal coagulation profile. ProBNP level is 14,300, sodium is at 140, BUN is at 23 with a creatinine of 1.1 and a potassium level is at 4.4. Serum bicarb is at 18. The viral profile was negative. His is the [employer]. The patient states that he is a DNR/DNI CODE STATUS. On today's evaluation 03/16/2023, the patient is off the BiPAP. He is currently on oxygen at 10 L I flow. Doing much better, communicating, breathing is obviously less labored compared to yesterday. He was quite short of breath supported by BiPAP throughout the day and ultimately was taken off the BiPAP. He is receiving broad-spectrum antibiotics. He is on steroids and is also on diuretics. The overall fluid balance over the past 24 hours is -3.7 L. Chest x-ray was repeated today and there is obviously some improvement elevation of the lungs bilaterally. The patient does have some background interstitial fibrosis however. No consolidation. No airspace disease. Blood work shows edematous of 8.9, hemoglobin is 14.7 and a platelet count of 173. His lactic acid level dropped down to 2.0. His troponin peaked at 0.397. His pro calcitonin level is at 0.12. Urine is a 30 with a creatinine of 1.2 and a sodium level is at 142. Echocardiogram is still pending. On 03/17/2023, the patient remains on high flow oxygen and liters per minute nasal cannula. Overnight, he was on BiPAP and currently is back on 10 L. He was doing well several rounds a 30 a.m. when he went into atrial fibrillation fibrillation with rapid ventricular response. This is a new onset A. fib. His blood pressure 90/70 and his somewhat hypotensive. He is feeling slightly more labored is feeling weak and uncomfortable. The patient's that have an echocardiogram on 03/16/2023 and echocardiogram showed mild concentric LVH, ejection fraction is around 50-55%, the patient has evidence of severe RV dilatation and severe pulmonary hypertension with a PA pressure of around 62 and there is flattening of the interventricular septum. The patient remains on broad-spectrum antibiotic coverage and he is still on IV Rocephin. He is on IV fluids are running at KVO. He is on IV heparin. Is on Lasix 40 mg IV every 8 hours. Objective - Vital Signs Vital signs: Vital Signs Temp 98 F 03/17/23 08:00 Pulse 133 H 03/17/23 08:00 Resp 34 H 03/17/23 08:00 BP 114/85 03/17/23 08:00 Pulse Ox 93 L 03/17/23 08:00 FiO2 50 03/17/23 04:45 Intake & Output 03/16/23 03/17/23 03/17/23 18:59 06:59 18:59 Intake Total 215.833 266.272 Output Total 1290 1940 85 Balance -1074.167 -1673.728 -85 Weight 92.3 kg 90.5 kg Intake: IV 0 Sodium Chloride 0.9% 1, 0 000 ml @ 20 mls/hr IV . Q24H [facility] Rx#:[id number] Intake, IV Titration 215.833 266.272 Amount Heparin Sod,Pork in 0.45% 215.833 266.272 NaCl 25,000 unit In 0.45 % NaCl 1 250ml.bag @ 10. 77 UNITS/KG/HR 10 mls/hr IV .Q24H [facility] Rx#: [id number] Output: Urine 1290 1940 85 Other: Voiding Method Indwelling Catheter Indwelling Catheter - Exam Extremely labored breathing and the patient is comfortable and currently is on 10 L of oxygen by nasal cannula with a pulse ox of 95%. Head exam was generally normal. There was no scleral icterus or corneal arcus. Mucous membranes were moist. Neck was supple and without jugular venous distension, thyromegaly, or carotid bruits. Carotids were easily palpable bilaterally. There was no adenopathy. Lungs sounds are diminished bilaterally and the patient has crackles in the mid and lower lung villanue[place] Heart sounds are tachycardic, patient is in A. fib RVR at this point is quite tachycardic in Abdominal exam revealed normal bowel sounds. The abdomen was soft, non-tender, and without masses, organomegaly, or appreciable enlargement of the abdominal aorta. The patient is umbilical hernia which is easily reducible Examination of the extremities revealed easily palpable radial, femoral and pedal pulses. There was no cyanosis, clubbing or edema. Examination of the skin revealed no evidence of significant rashes, suspicious appearing nevi or other concerning lesions. Neurologically the patient is awake and alert and following commands and answering questions appropriately. - Labs CBC & Chem 7: 03/17/23 03:14 03/16/23 06:55 Labs: Abnormal Lab Results - Last 24 Hours (Table) 03/16/23 03/17/23 03/17/23 Range/Units 14:01 03:14 03:14 WBC 13.0 H (3.8-10.6) k/uL APTT 45.8 H 34.7 H (22.0-30.0) sec Microbiology - Last 24 Hours (Table) 03/15/23 05:57 Blood Culture - Preliminary Blood 03/15/23 06:00 Blood Culture - Preliminary Blood Assessment and Plan Plan: Acute on chronic hypoxic respiratory failure. The patient has chronic pulmonary fibrosis and has chronic oxygen dependence at 8 L/m nasal cannula. The patient presented to the hospital because of an acute on top of chronic shortness of breath and hypoxic respiratory failure and the patient is currently on BiPAP at a pressure of 10/5 with an FiO2 of 50%. The cause for this acute decompensation is not clear. Patient remains on 10 L of oxygen by nasal cannula. He responded to diuretics and he is still using the BiPAP overnight. Echocardiogram showed preserved function with CT pulmonary hypertension which is consistent with this chronic pulmonary fibrosis. Severe pulmonary hypertension with RV dilatation and. Pressures of 62 mmHg New onset A. 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 Tracy on outpatient basis Chronic hypoxic respiratory failure maintained on oxygen at 8 L/m nasal cannula Chronic dyspnea secondary to above Elevated proBNP level, consider underlying CHF Troponin leak, rule out acute non-ST segment elevation myocardial infarction Obesity Hyperlipidemia History of depression Obstructive sleep apnea Umbilical hernia History of diverticulosis and previous history of rectal bleed Chronic anxiety Plan Patient remains a DNR/DNI CODE STATUS We'll give a bolus of amiodarone 150 mg of following that started amiodarone drip per protocol Continue IV heparin Use BiPAP if needed and the patient is currently on 10 L of oxygen by nasal cannula Continue IV Lasix the patient is in negative fluid balance of 2.7 L over the past 24 hours Echocardiogram shows severe pulmonary hypertension, preserved LV function, RV dilatation and flattening of the interventricular septum. Pro calcitonin level is minimally elevated and the patient is currently on IV antibiotics on an empiric basis The viral screen is been negative Continue prednisone at a dose of 40 mg of [facility] We are going to contact the was [employer] of [employer]. He states it is a DNR/DNI CODE STATUS and this has been also confirmed with the . IV fluids to KVO Prozac 20 mg, Zocor 40 mg and Avapro 150 mg. Condition is critical, possible ICU care specially if unable to confirm the CODE STATUS. Critical care evaluation that was done, >30 min Time with Patient: Greater than 30
[2023-03-17] MEDS ORDERED: DILTIAZEM 125 MG in SODIUM CHLORIDE 0.9% 100 ML IV SCH (09:15)
[2023-03-17] MEDS: IPRATROPIUM-ALBUTEROL 3 ML NEB INHALATION SCH ×3 (09:28→21:19)
[2023-03-17] MEDS: SODIUM CHLORIDE 0.9% 1,000 ML IV SCH (09:32)
[2023-03-17] MEDS: SODIUM CHLORIDE 0.9% 250 ML IV SCH ×2 (09:32→20:31)
--- NOTE | 2023-03-17 11:59 | P.PN ---
Subjective Progress Note Date: 03/17/23 * 82-year-old gentleman with past medical history significant for hypertension, dyslipidemia, pulmonary fibrosis, interstitial lung disease, chronic hypoxic respiratory failure on approximately 8 L of oxygen at baseline was sent in from another facility for respiratory failure/pneumonia/COPD exacerbation. Patient has been having productive cough with green-yellow sputum, intermittent chest pain, shortness of breath ongoing for the last few weeks. Prior to transfer to [facility] by mouth: Patient was treated with IV antibiotics including cefepime, Levaquin, IV Solu-Medrol and given Xopenex breathing tr eatment. At the time of presentation in ED patient was noted to be severely hypoxic and was placed on BiPAP for acute respiratory distress * At the time of presentation in ED patient was noted to be severely hypoxic and was placed on BiPAP for respiratory distress * Workup initiated in ER included a chest x-ray which showed multifocal opacities as well as pulmonary vascular congestion * Serum chemistry obtained in ER included CBC which were WBC of 11.1 hemoglobin 14.6 platelet count of 153 * Sodium of 140 potassium 4.4 chloride 111 carbon dioxide 18 BUNs 20 creatinine 1.13 lactate of 4.3 troponin of 0.213 * N-terminal BNP 32515 * EKG obtained in ER showed sinus tachycardia with nonspecific ST segment changes patient was noted to have elevated troponin and was started on IV heparin drip with consultation from cardiology * Secondary to acute respiratory distress probably medicine was consulted as well * Patient to be admitted to progressive care unit for treatment of ACS, respiratory failure multifocal pneumonia and COPD exacerbation * 03/16/2023: Patient seen and everted bedside, during my evaluation patient is alert and oriented 4, patient is on high flow oxygen 10 L, at bedside, continue on current medications including IV antibiotic. Follow-up on blood work shows improvement in WBC count, serum chemistry essentially improved, lactate within normal limits * 03/17/2023: Patient seen and evaluated bedside, during my assessment patient is alert and oriented 4, continues to remain on high oxygen overnight went into A. fib with RVR started on Cardizem drip. CBC reviewed WBC 13, patient on IV heparin drip, hemoglobin 14.9. Coronary artery and hospice consulted REVIEW OF SYSTEMS: Cough, sputum production, shortness of breath, chest pain improved CONSTITUTIONAL: No fever, no malaise, no fatigue. HEENT: No recent visual problems or hearing problems. Denied any sore throat. CARDIOVASCULAR: Cough, sputum production, shortness of breath, chest pain PULMONARY: Cough, sputum production, shortness of breath, chest pain GASTROINTESTINAL: No diarrhea, no nausea, no vomiting, no abdominal pain. NEUROLOGICAL: No headaches, no weakness, no numbness. HEMATOLOGICAL: Denies any bleeding or petechiae. GENITOURINARY: Denies any burning micturition, frequency, or urgency. MUSCULOSKELETAL/RHEUMATOLOGICAL: Denies any joint pain, swelling, or any muscle pain. ENDOCRINE: Denies any polyuria or polydipsia. PHYSICAL EXAMINATION: GENERAL: The patient is alert and oriented x3, acute distress, ill appearance,na tabitha canula in place HEENT: Pupils are round and equally reacting to light. EOMI Normocephalic, atraumatic. No pharyngeal erythema. No thyromegaly. CARDIOVASCULAR: S1 and S2 present. Tachycardia noted, irregular rhythm PULMONARY: Decreased breath sounds bilaterally, bilateral crackles noted ABDOMEN: Soft, nontender, nondistended, normoactive bowel sounds. MUSCULOSKELETAL: No joint swelling or deformity. EXTREMITIES: No cyanosis, clubbing, or pedal edema. NEUROLOGICAL: Alert and oriented 3 no focal deficit noted Objective - Vital Signs Vital signs: Vital Signs Temp 98 F 03/17/23 08:00 Pulse 125 H 03/17/23 11:00 Resp 25 H 03/17/23 11:00 BP 95/61 03/17/23 11:00 Pulse Ox 91 L 03/17/23 11:00 FiO2 50 03/17/23 04:45 Intake & Output 03/16/23 03/17/23 03/17/23 18:59 06:59 18:59 Intake Total 215.833 266.272 400 Output Total 1290 1940 325 Balance -8016.446 -0843.723 75 Weight 92.3 kg 90.5 kg Intake: IV 0 250 Sodium Chloride 0.9% 1, 0 000 ml @ 20 mls/hr IV . Q24H [facility] Rx#:[id number] Sodium Chloride 0.9% 250 250 ml @ 999 mls/hr IV .Q16M [facility] Rx#:[id number] Intake, IV Titration 215.833 266.272 Amount Heparin Sod,Pork in 0.45% 215.833 266.272 NaCl 25,000 unit In 0.45 % NaCl 1 250ml.bag @ 10. 77 UNITS/KG/HR 10 mls/hr IV .Q24H [facility] Rx#: [id number] Oral 150 Output: Urine 1290 1940 325 Other: Voiding Method Indwelling Catheter Indwelling Catheter Indwelling Catheter - Labs CBC & Chem 7: 03/17/23 03:14 03/16/23 06:55 Labs: Abnormal Lab Results - Last 24 Hours (Table) 03/16/23 03/17/23 03/17/23 Range/Units 14:01 03:14 03:14 WBC 13.0 H (3.8-10.6) k/uL APTT 45.8 H 34.7 H (22.0-30.0) sec Microbiology - Last 24 Hours (Table) 03/15/23 05:57 Blood Culture - Preliminary Blood 03/15/23 06:00 Blood Culture - Preliminary Blood Assessment and Plan Assessment: Assessment and plan * Acute on chronic hypoxic respiratory failure multifactorial CHF COPD exacerbation * Non-ST elevated LA * Atrial flutter pressures rapid ventricular response * History of pulmonary fibrosis with acute exacerbation * Acute exacerbation of congestive heart failure * Multifocal pneumonia * Acute metabolic encephalopathy secondary to hypoxia * Sepsis secondary to multifocal pneumonia * In regards to hypoxic respiratory failure continue patient was on noninvasive ventilation, pulmonary medicine consulted >> continue IV antibiotics, IV steroids, breathing treatments as needed, on Rocephin and azithromycin day 2 * In regards to CHF exacerbation, echocardiogram ordered, IV Lasix started, co ntinue to monitor intake and output cardiology consulted * In regards to multifocal pneumonia continue patient on Rocephin day 3 , azithromycin completed urine Legionella ordered * In regards to atrial fib continue patient on IV Cardizem drip. * In regards to metabolic encephalopathy secondary to hypoxia continue with oxygen supplementation continue with frequent orientation * In regards to sepsis secondary to multifocal pneumonia, blood cultures ordered, CRP and pro-calcitonin minimally elevated * Patient appears critically ill cardiology, pulmonary medicine consulted * Prognosis and care plan personally discussed with in ICU * CODE STATUS is no code
[2023-03-17] MEDS: APIXABAN 5 MG TAB PO SCH ×2 (14:52→20:38)
[2023-03-17] MEDS ORDERED: AMIODARONE 450 MG in DEXTROSE 5% IN WATER 250 ML IV SCH ×2 (15:03)
--- NOTE | 2023-03-17 19:05 | P.PN ---
Subjective Progress Note Date: 03/17/23 HPI This is an 82-year-old male with past medical history significant for pulmonary fibrosis, chronic hypoxic respiratory failure on home O2, hypertension, hyperlipidemia, obstructive sleep apnea. We have been asked to evaluate the patient for elevated troponins. Patient initially presented to [facility]. He was having shortness of breath that had been going on for quite some time was on antibiotics with Zithromax and a prednisone taper without improvement and actually reading was continuing to worsen. His pulse ox was 60% on 8 L nasal cannula at home. His increased his oxygen to 11 L is pulse ox went to 95%. EMS brought the patient int [facility]. Viral panel was negative with Covid 19, influenza A, influenza B and RSV. WBC 10, hemoglobin 15, platelet count 194. Glucose 271. Creatinine 1.83. Sodium 141, potassium 3.9, CO2 20, d-dimer was 1.6. Lactic acid 8.6. Magnesium 2.2. ProBNP 15,146. Chest x-ray revealed enlarged heart, vascular congestion with edema, hypoinflated lungs with mild elevated left hemidiaphragm. No pleural effusion or pneumothorax. Home cardiac medications: aspirin 81 mg daily, Lasix 20 mg daily, Lopressor 12.5 mg twice daily, Nitrostat as needed Progress note 03/17/2023 Patient is seen and examined with the same. Patient was noticed to be in atrial fibrillation with rapid ventricular response. He was started on IV Cardizem drip and since then his heart rate has been ranging from 100-110 beats a minute, he continues to be in atrial fibrillation saturating 92% on 10 L oxygen. Physical examination: Gen: This is a 82-year-old male resting and appears to be in mild to moderate distress, currently on Bipap. VS: reviewed HEENT: Head is atraumatic, normocephalic. Pupils equal, round. Sclerae is anicteric. NECK: Supple. No JVD. LUNGS: diminished with crackles. No intercostal retractions. HEART: Regular rate and rhythm. No murmur. ABDOMEN: Soft No tenderness. EXTREMITIES: No pedal edema. No calf tenderness. NEUROLOGICAL: Patient is awake, alert and oriented x3. Assessment: Acute on chronic hypoxic respiratory failure due to diastolic congestive heart failure exacerbation Chronic hypoxia due to chronic lung fibrosis, on 9 L oxygen previously Community acquired Pneumonia Elevated troponin, likely type II nstemi in setting of severe hypoxia Atrial fibrillation with rapid ventricular response. Echo showed limited views, LVEF estimated to be around 50%, severe RV dilatation with severe pulmonary hypertension, moderate MR Plan: Continue on IV Lasix 40 mg every 12 hours Discontinue IV heparin. Start Eliquis 5 mg twice a day. Discontinue aspirin Continue atorvastatin Discontinue IV Cardizem drip. Start by mouth Cardizem 120 mg daily to go home with I had a detailed discussion about risk factors and indications for heart catheterization, cardioversion and other cardiac procedures like stress test. At this time patient and family has expressed wishes of not pursuing any invasive or noninvasive ischemic evaluation. They want to be treated medically. They don't want any cardioversion procedure to be done. They do not want to be an amiodarone as this worsen patient's already existing pulmonary fibrosis. I have discussed that if it is difficult to control his atrial fibrillation and can be used temporarily as palliation. Prognosis is guarded I agree with patient's wishes. Okay to discharge tomorrow with palliative care Objective - Vital Signs Vital signs: Vital Signs Temp 98.3 F 03/17/23 16:00 Pulse 117 H 03/17/23 18:00 Resp 24 03/17/23 18:00 BP 100/65 03/17/23 18:00 Pulse Ox 93 L 03/17/23 18:00 FiO2 50 03/17/23 04:45 Intake & Output 03/17/23 03/17/23 03/18/23 06:59 18:59 06:59 Intake Total 266.272 800 Output Total 1940 583 Balance -1673.728 217 Weight 90.5 kg Intake: IV 250 Sodium Chloride 0.9% 250 250 ml @ 999 mls/hr IV .Q16M [facility] Rx#:[id number] Intake, IV Titration 266.272 Amount Heparin Sod,Pork in 0.45% 266.272 NaCl 25,000 unit In 0.45 % NaCl 1 250ml.bag @ 10. 77 UNITS/KG/HR 10 mls/hr IV .Q24H [facility] Rx#: [id number] Oral 550 Output: Urine 1940 583 Other: Voiding Method Indwelling Catheter Indwelling Catheter - Labs CBC & Chem 7: 03/17/23 03:14 03/16/23 06:55 Labs: Abnormal Lab Results - Last 24 Hours (Table) 03/17/23 03/17/23 Range/Units 03:14 03:14 WBC 13.0 H (3.8-10.6) k/uL APTT 34.7 H (22.0-30.0) sec Microbiology - Last 24 Hours (Table) 03/15/23 05:57 Blood Culture - Preliminary Blood 03/15/23 06:00 Blood Culture - Preliminary Blood
[2023-03-17] MEDS: MONTELUKAST 10 MG TAB PO SCH (20:27)
[2023-03-17] MEDS: DILTIAZEM ORAL 30 MG TAB PO SCH (20:28)
[2023-03-17] MEDS: ATORVASTATIN 20 MG TAB PO SCH (20:28)
[2023-03-18 04:35] LABS: HGB 14.5 gm/dL (13.0-17.5); MCH 30.8 pg (25.0-35.0); MCHC 32.3 g/dL (31.0-37.0); MCV 95.3 fL (80.0-100.0); Mean Platelet Volume 8.7; Platelet Count 172 k/uL (150-450); RBC 4.72 m/uL (4.30-5.90); RDW 14.3 % (11.5-15.5); WBC 10.4 k/uL (3.8-10.6)
[2023-03-18 04:57] LABS: African American GFR (CKD) 71 (>60 ml/min/1.73 sqM); Anion Gap 3 mmol/L; Blood Urea Nitrogen 46 mg/dL (9-20); Calcium 8.7 mg/dL (8.4-10.2); Carbon Dioxide 31 mmol/L (22-30); Chloride 103 mmol/L (98-107); Glucose 95 mg/dL (74-99); Non-African American GFR(CKD) 62 (>60 ml/min/1.73 sqM); Potassium 3.5 mmol/L (3.5-5.1); Sodium 137 mmol/L (137-145)
[2023-03-18] MEDS ORDERED: Potassium Replacement Protocol 1 EACH MISC MISCELLANE PRN (05:58)
--- NOTE | 2023-03-18 06:57 | XR ---
EXAMINATION TYPE: XR chest 1V portable DATE OF EXAM: 03/18/2023 CLINICAL HISTORY: Difficulty breathing progress study. CHF exacerbation. TECHNIQUE: Single AP portable upright view of the chest is obtained. COMPARISON: Chest x-ray from 2 days earlier FINDINGS: Persistent cardiomegaly and low lung volumes. Persistent diffuse interstitial and patchy p eripheral increased opacities. Osseous structures are intact. IMPRESSION: Cardiomegaly with bilateral edema and/or atypical infiltrates. Correlate clinically. No s ignificant change from most recent study.
[2023-03-18] MEDS: POTASSIUM CHLORIDE ER 20 MEQ TAB.ER PO SCH ×2 (08:22→10:54)
[2023-03-18] MEDS: DILTIAZEM ORAL 30 MG TAB PO SCH ×2 (08:22→11:51)
[2023-03-18] MEDS: guaiFENesin 600 MG TABLET.ER PO SCH (08:22)
[2023-03-18] MEDS: APIXABAN 5 MG TAB PO SCH (08:22)
[2023-03-18] MEDS: predniSONE 20 MG TAB PO SCH (08:22)
[2023-03-18] MEDS: FLUoxetine HCL 20 MG CAP PO SCH (08:22)
[2023-03-18] MEDS: PANTOPRAZOLE 40 MG/10 ML VIAL IV SCH (08:23)
[2023-03-18] MEDS: FUROSEMIDE 10 MG/ML 4 ML VIAL IV SCH (08:23)
[2023-03-18] MEDS: IPRATROPIUM-ALBUTEROL 3 ML NEB INHALATION SCH (09:00)
--- NOTE | 2023-03-18 09:23 | P.PN ---
Subjective Progress Note Date: 03/18/23 82-year-old male patient presenting with shortness of breath. I'm seeing the patient in the emergency department and the patient is currently on a BiPAP at a pressure of 10 over 5 cm of water with FiO2 of 50%. The patient was transferred to us from [facility]. He is known to have obstructive sleep apnea, pulmonary fibrosis, hyperlipidemia, hiatal hernia, history of depression, colonic diverticulosis. The patient was seen by Dr. Tracy regarding his pulmonary fibrosis. He is also in the process of switching from Dr. Tracy to Dr. Pacheco. He was getting progressively more hypoxic. He was asked to increase oxygen flow up to 8 L/m nasal cannula which uses on outpatient basis. He has a concentrator at home. He lives in [facility]. He arrived there to the emergency department on 11 L. Subsequently, he got transferred to us with worsening shortness of breath and currently is on a BiPAP with extreme labored breathing to the point where the patient using accessory muscles of breathing and he is unable to complete full sentences. His generating tidal volumes above 1000. His current respiratory rate is around 38 with a minute ventilation of 46 L/m. Based on the history, he has no chest pain. A productive cough and he was also having some chills on outpatient basis. Chest x-ray was cardiomegaly and multifocal infiltrates and the chronicity of the pulmonary infiltrates are noted known. The echoes 11, he was 14.6 and a platelet count is at 153. Normal coagulation profile. ProBNP level is 14,300, sodium is at 140, BUN is at 23 with a creatinine of 1.1 and a potassium level is at 4.4. Serum bicarb is at 18. The viral profile was negative. His is the power of family law attorney. The patient states that he is a DNR/DNI CODE STATUS. On today's evaluation 03/16/2023, the patient is off the BiPAP. He is currently on oxygen at 10 L I flow. Doing much better, communicating, breathing is obviously less labored compared to yesterday. He was quite short of breath supported by BiPAP throughout the day and ultimately was taken off the BiPAP. He is receiving broad-spectrum antibiotics. He is on steroids and is also on diuretics. The overall fluid balance over the past 24 hours is -3.7 L. Chest x-ray was repeated today and there is obviously some improvement elevation of the lungs bilaterally. The patient does have some background interstitial fibrosis however. No consolidation. No airspace disease. Blood work shows edematous of 8.9, hemoglobin is 14.7 and a platelet count of 173. His lactic acid level dropped down to 2.0. His troponin peaked at 0.397. His pro calcitonin level is at 0.12. Urine is a 30 with a creatinine of 1.2 and a sodium level is at 142. Echocardiogram is still pending. On 03/17/2023, the patient remains on high flow oxygen and liters per minute nasal cannula. Overnight, he was on BiPAP and currently is back on 10 L. He was doing well several rounds a 30 a.m. when he went into atrial fibrillation fibrillation with rapid ventricular response. This is a new onset A. fib. His blood pressure 90/70 and his somewhat hypotensive. He is feeling slightly more labored is feeling weak and uncomfortable. The patient's that have an echocardiogram on 03/16/2023 and echocardiogram showed mild concentric LVH, ejection fraction is around 50-55%, the patient has evidence of severe RV dilatation and severe pulmonary hypertension with a PA pressure of around 62 and there is flattening of the interventricular septum. The patient remains on broad-spectrum antibiotic coverage and he is still on IV Rocephin. He is on IV fluids are running at KVO. He is on IV heparin. Is on Lasix 40 mg IV every 8 hours. On 03/18/2023, the patient is awake and alert and communicating. No major vessel distress at rest. He did not use the BiPAP overnight. Currently he is on high flow oxygen at 8 L and this is the oxygen flow to that utilizes also on outpatient basis. He did have a bout of atrial fibrillation yesterday. He went into rapid ventricular response. I wanted to do amiodarone. Cardiology ultimately saw the patient and discontinued the amiodarone and give the patient Cardizem drip. He responded nicely and he is back into normal sinus rhythm at this point. He is awake and alert and communicating. Tolerating diet. He has made his decision to go home with hospice care. His echocardiogram was completed and the patient was found to have a normal limits. Ejection fraction. He is expected to have secondary pulmonary hypertension due to his chronic lung disease and hypoxemia. He remains on IV Lasix. Is producing adequate amount of urine output. He is normotensive. No fever. No other significant events overnight. IV fluids are currently at KVO. Objective - Vital Signs Vital signs: Vital Signs Temp 98.8 F 03/18/23 00:00 Pulse 73 03/18/23 07:00 Resp 21 03/18/23 07:00 BP 118/63 03/18/23 07:00 Pulse Ox 95 03/18/23 07:00 FiO2 50 03/17/23 04:45 Intake & Output 03/17/23 03/18/23 03/18/23 18:59 06:59 18:59 Intake Total 800 1025 0 Output Total 583 1405 Balance 217 -380 0 Weight 91.2 kg Intake: IV 250 0 Sodium Chloride 0.9% 250 250 0 ml @ 999 mls/hr IV .Q16M [facility] Rx#:[id number] Oral 550 1025 Output: Urine 583 1405 Other: Voiding Method Indwelling Catheter Indwelling Catheter - Exam Extremely labored breathing and the patient is comfortable and currently is on 8 L of oxygen by nasal cannula with a pulse ox of 95%. Head exam was generally normal. There was no scleral icterus or corneal arcus. Mucous membranes were moist. Neck was supple and without jugular venous distension, thyromegaly, or carotid bruits. Carotids were easily palpable bilaterally. There was no adenopathy. Lungs sounds are diminished bilaterally and the patient has crackles in the mid and lower lung vill[place] Heart sounds are tachycardic, patient is in A. fib RVR at this point is quite tachycardic in Abdominal exam revealed normal bowel sounds. The abdomen was soft, non-tender, and without masses, organomegaly, or appreciable enlargement of the abdominal aorta. The patient is umbilical hernia which is easily reducible Examination of the extremities revealed easily palpable radial, femoral and pedal pulses. There was no cyanosis, clubbing or edema. Examination of the skin revealed no evidence of significant rashes, suspicious appearing nevi or other concerning lesions. Neurologically the patient is awake and alert and following commands and answering questions appropriately. - Labs CBC & Chem 7: 03/18/23 04:13 03/18/23 04:13 Labs: Abnormal Lab Results - Last 24 Hours (Table) 03/18/23 Range/Units 04:13 Carbon Dioxide 31 H (22-30) mmol/L BUN 46 H (9-20) mg/dL Microbiology - Last 24 Hours (Table) 03/15/23 05:57 Blood Culture - Preliminary Blood 03/15/23 06:00 Blood Culture - Preliminary Blood Assessment and Plan Plan: Acute on chronic hypoxic respiratory failure. The patient has chronic pulmonary fibrosis and has chronic oxygen dependence at 8 L/m nasal cannula. He acutely decompensated. Requiring BiPAP. He responded to diuretics and steroids. I do not think he has any pulmonary infection at this point in time. He is in a negative fluid balance. Echocardiogram was noted. The patient is currently off the BiPAP and his back on 8 L of oxygen by nasal cannula. Is feeling much better at this point in time. Severe pulmonary hypertension with RV dilatation and. Pressures of 62 mmHg New onset A. 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 Tracy on outpatient basis Chronic hypoxic respiratory failure maintained on oxygen at 8 L/m nasal cannula Chronic dyspnea secondary to above Elevated proBNP level, consider underlying CHF Troponin leak, rule out acute non-ST segment elevation myocardial infarction Obesity Hyperlipidemia History of depression Obstructive sleep apnea Umbilical hernia History of diverticulosis and previous history of rectal bleed Chronic anxiety Plan Patient remains a DNR/DNI CODE STATUS, interested in going home with hospice care Continue Cardizem early milligrams 4 times a day IV heparin was discontinued Patient was started on oral Eliquis Patient is back on 8 L of oxygen by nasal cannula Stop IV Lasix and put the patient on oral Lasix 40 mg twice a day Echocardiogram shows severe pulmonary hypertension, preserved LV function, RV dilatation and flattening of the interventricular septum. Pro calcitonin level is minimally elevated and the patient is currently on IV antibiotics on an empiric basis The viral screen is been negative Continue prednisone at a dose of 40 mg of oral prednisone William scott 4 times a day We are going to contact the was power of family law attorney. He states it is a DNR/DNI CODE STATUS and this has been also confirmed with the . IV fluids to KVO Discontinue the IV Rocephin Patient is going to be released to the medical floor and hospice services has been consulted. He is much improved during this current ICU stay.
[2023-03-18 09:43] VITALS: PULSE 96; TEMP 98.4
[2023-03-18 12:14] VITALS: BP 114/81; RESP 20
--- NOTE | 2023-03-18 12:15 | P.DS ---
Providers Date of admission: 03/15/23 07:32 Expected date of discharge: 03/18/23 Attending physician: Nola Franks MD Consults: 03/15/23 07:38 Consult Physician Routine Consulting Provider: Aden Catherine Consult Reason/Comments: Dyspnea. CHF. COPD history Do you want consulting provider notified?: Yes Consult Physician Routine Consulting Provider: Eduardo Britt Consult Reason/Comments: CHF, possible valvular disease Do you want consulting provider notified?: Yes Primary care physician: [facility] Course: * 82-year-old gentleman with past medical history significant for hypertension, dyslipidemia, pulmonary fibrosis, interstitial lung disease, chronic hypoxic respiratory failure on approximately 8 L of oxygen at baseline was sent in from another facility for respiratory failure/pneumonia/COPD exacerbation. Patient has been having productive cough with green-yellow sputum, intermittent chest pain, shortness of breath ongoing for the last few weeks. Prior to transfer to [facility] by mouth: Patient was treated with IV antibiotics including cefepime, Levaquin, IV Solu-Medrol and given Xopenex breathing treatment. At the time of presentation in ED patient was noted to be severely hypoxic and was placed on BiPAP for acute respiratory distress * At the time of presentation in ED patient was noted to be severely hypoxic and was placed on BiPAP for respiratory distress * Workup initiated in ER included a chest x-ray which showed multifocal opacities as well as pulmonary vascular congestion * Serum chemistry obtained in ER included CBC which were WBC of 11.1 hemoglobin 14.6 platelet count of 153 * Sodium of 140 potassium 4.4 chloride 111 carbon dioxide 18 BUNs 20 creatinine 1.13 lactate of 4.3 troponin of 0.213 * N-terminal BNP 35335 * EKG obtained in ER showed sinus tachycardia with nonspecific ST segment changes patient was noted to have elevated troponin and was started on IV heparin drip with consultation from cardiology * Secondary to acute respiratory distress probably medicine was consulted as well * Patient to be admitted to progressive care unit for treatment of ACS, respiratory failure multifocal pneumonia and COPD exacerbation * 03/16/2023: Patient seen and everted bedside, during my evaluation patient is alert and oriented 4, patient is on high flow oxygen 10 L, at bedside, continue on current medications including IV antibiotic. Follow-up on blood work shows improvement in WBC count, serum chemistry essentially improved, lactate within normal limits * 03/17/2023: Patient seen and evaluated bedside, during my assessment patient is alert and oriented 4, continues to remain on high oxygen overnight went into A. fib with RVR started on Cardizem drip. CBC reviewed WBC 13, patient on IV heparin drip, hemoglobin 14.9. Coronary artery and hospice consulted * 03/18/2023: Patient seen and evaluated bedside, patient to be discharged home with hospice, patient weaned down to 8 L of oxygen, home medications reviewed, prescription provided for Eliquis, prednisone, Cardizem, Lasix. Comfort medications to be provided by hospice team REVIEW OF SYSTEMS: Cough, sputum production improved, shortness of breath improved, chest pain improved CONSTITUTIONAL: No fever, no malaise, no fatigue. HEENT: No recent visual problems or hearing problems. Denied any sore throat. CARDIOVASCULAR: Cough, sputum production, shortness of breath, chest pain PULMONARY: Cough, sputum production, shortness of breath, chest pain GASTROINTESTINAL: No diarrhea, no nausea, no vomiting, no abdominal pain. NEUROLOGICAL: No headaches, no weakness, no numbness. HEMATOLOGICAL: Denies any bleeding or petechiae. GENITOURINARY: Denies any burning micturition, frequency, or urgency. MUSCULOSKELETAL/RHEUMATOLOGICAL: Denies any joint pain, swelling, or any muscle pain. ENDOCRINE: Denies any polyuria or polydipsia. PHYSICAL EXAMINATION: GENERAL: The patient is alert and oriented x3, acute distress, ill appearance,nasal canula in place HEENT: Pupils are round and equally reacting to light. EOMI Normocephalic, atraumatic. No pharyngeal erythema. No thyromegaly. CARDIOVASCULAR: S1 and S2 present. Tachycardia noted, irregular rhythm PULMONARY: Decreased breath sounds bilaterally, bilateral crackles noted ABDOMEN: Soft, nontender, nondistended, normoactive bowel sounds. MUSCULOSKELETAL: No joint swelling or deformity. EXTREMITIES: No cyanosis, clubbing, or pedal edema. NEUROLOGICAL: Alert and oriented 3 no focal deficit noted Assessment: Assessment and plan * Acute on chronic hypoxic respiratory failure multifactorial CHF COPD exacerbation * Non-ST elevated [place] * Atrial flutter pressures rapid ventricular response * History of pulmonary fibrosis with acute exacerbation * Acute exacerbation of congestive heart failure * Multifocal pneumonia * Acute metabolic encephalopathy secondary to hypoxia * Sepsis secondary to multifocal pneumonia * In regards to hypoxic respiratory failure continue patient was on noninvasive ventilation, pulmonary medicine consulted >> received steroids, antibiotic while inpatient discharge home with hospice * In regards to CHF exacerbation, echocardiogram completed, received IV Lasix discharge home with hospice on oral Lasix * In regards to multifocal pneumonia receiving antibiotic while inpatient * In regards to atrial fib continue patient was on IV Cardizem drip. Transition to oral Cardizem * In regards to metabolic encephalopathy secondary to hypoxia continue with oxygen supplementation continue with frequent orientation * In regards to sepsis secondary to multifocal pneumonia, blood cultures ordered, CRP and pro-calcitonin minimally elevated, treated with antibiotic while inpatient * Patient appears critically ill cardiology, pulmonary medicine consulted * Prognosis and care plan personally discussed with in ICU * Patient discharged home with hospice Patient Condition at Discharge: Fair Plan - Discharge Summary Discharge Rx Participant: No New Discharge Prescriptions: New Diltiazem Oral [Cardizem*] 30 mg PO QID 30 Days #120 tab Apixaban [Eliquis] 5 mg PO BID 30 Days #60 tab Furosemide [Lasix] 40 mg PO BID@0900,1600 30 Days #60 tab predniSONE [Deltasone] 40 mg PO DAILY 5 Days #5 tab Continue Omeprazole [PriLOSEC] 20 mg PO DAILY FLUoxetine HCL [PROzac] 20 mg PO DAILY diphenhydrAMINE [Benadryl] 25 mg PO BID PRN PRN Reason: Itching Montelukast [Singulair] 10 mg PO HS Ipratropium-Albuterol Nebulize [Duoneb 0.5 mg-3 mg/3 ml Soln] 3 ml INHALATION RT-TID Famotidine [Pepcid] 20 mg PO DAILY guaiFENesin-Coden 100-10MG/5ML [Robitussin AC] 10 ml PO Q6H PRN PRN Reason: Cough Clobetasol Propionate/Emoll [Clobetasol Emulsion 0.05% Foam] 1 applic TOPICAL Discontinued Simvastatin [Zocor] 40 mg PO HS Aspirin 81 mg PO DAILY Irbesartan [Avapro] 150 mg PO DAILY Discharge Medication List Clobetasol Propionate/Emoll [Clobetasol Emulsion 0.05% Foam] 1 applic TOPICAL 03/15/23 [History] FLUoxetine HCL [PROzac] 20 mg PO DAILY 03/15/23 [History] Famotidine [Pepcid] 20 mg PO DAILY 03/15/23 [History] Ipratropium-Albuterol Nebulize [Duoneb 0.5 mg-3 mg/3 ml Soln] 3 ml INHALATION RT-TID 03/15/23 [History] Montelukast [Singulair] 10 mg PO HS 03/15/23 [History] Omeprazole [PriLOSEC] 20 mg PO DAILY 03/15/23 [History] diphenhydrAMINE [Benadryl] 25 mg PO BID PRN 03/15/23 [History] guaiFENesin-Coden 100-10MG/5ML [Robitussin AC] 10 ml PO Q6H PRN 03/15/23 [History] Apixaban [Eliquis] 5 mg PO BID 30 Days #60 tab 03/18/23 [Rx] Diltiazem Oral [Cardizem*] 30 mg PO QID 30 Days #120 tab 03/18/23 [Rx] Furosemide [Lasix] 40 mg PO BID@0900,1600 30 Days #60 tab 03/18/23 [Rx] predniSONE [Deltasone] 40 mg PO DAILY 5 Days #5 tab 03/18/23 [Rx] Follow up Appointment(s)/Referral(s): Nonstaff,Physician [REFERRING] - 1-2 days Discharge Disposition: [facility] TO HOSPICE MED FACILTY
[2023-03-18] MEDS ORDERED: FUROSEMIDE 40 MG TAB PO SCH (16:00)
== END 2023-03-18 15:23 | disposition hospice, home (50) | DRG 871 ==
LOC: EC 05:32 → 3SCARD 07:32 → 2SICU 10:43
PROVIDERS: ADMIT Internal Medicine; ATTEND Internal Medicine
PROC: 5A09357 Assistance with Respiratory Ventilation, Less than 24 Consecutive Hours, Continuous Positive Airway Pressure (ICD-10-PCS; principal; 2023-03-15)
PROC: 3E033RZ Introduction of Antiarrhythmic into Peripheral Vein, Percutaneous Approach (ICD-10-PCS; 2023-03-17)
DX: A41.9 Sepsis, unspecified organism (principal); G93.41 Metabolic encephalopathy; J18.9 Pneumonia, unspecified organism; I21.A1 Myocardial infarction type 2; I50.33 Acute on chronic diastolic (congestive) heart failure; J96.21 Acute and chronic respiratory failure with hypoxia; J44.0 Chronic obstructive pulmonary disease with (acute) lower respiratory infection; J44.1 Chronic obstructive pulmonary disease with (acute) exacerbation; I48.92 Unspecified atrial flutter; E87.20 Acidosis, unspecified; E78.5 Hyperlipidemia, unspecified; J84.112 Idiopathic pulmonary fibrosis; Z51.5 Encounter for palliative care; Z66 Do not resuscitate; I95.9 Hypotension, unspecified; I48.91 Unspecified atrial fibrillation; F41.9 Anxiety disorder, unspecified; I11.0 Hypertensive heart disease with heart failure; K42.9 Umbilical hernia without obstruction or gangrene; I27.29 Other secondary pulmonary hypertension; E66.9 Obesity, unspecified; Z68.29 Body mass index [BMI] 29.0-29.9, adult; G47.33 Obstructive sleep apnea (adult) (pediatric); K44.9 Diaphragmatic hernia without obstruction or gangrene; F32.A Depression, unspecified; K57.30 Diverticulosis of large intestine without perforation or abscess without bleeding; Z79.01 Long term (current) use of anticoagulants; Z79.82 Long term (current) use of aspirin; Z89.111 Acquired absence of right hand; Z79.899 Other long term (current) drug therapy; Z87.891 Personal history of nicotine dependence; Z99.81 Dependence on supplemental oxygen; Z71.3 Dietary counseling and surveillance
CPT/HCPCS: 36415; 71045; 80048; 80053; 80061; 83036; 83605; 83880; 84145; 84443; 84484; 85025; 85027; 85610; 85730; 86140; 87040; 87449; 93005; 93306; 94640; 94660; 94760; 96365; 96368; 96375; 99291